=== PATIENT | male | born 1965 | race Caucasian/White ===

== ENCOUNTER 2018-02-27 13:31 | Outpatient (CLI) | payer OTHER, SELFPAY ==
[2018-02-27 14:38] LABS: Anion Gap 9.2 mmol/L (3-11); BUN 19 mg/dL (7-18); CO2 25.8 mmol/L (21.0-32.0); CREATININE 1.14 mg/dL (0.70-1.30); Chloride 106 mmol/L (98-107); Glucose 103 mg/dL (70-100); Potassium 3.9 mmol/L (3.5-5.1); Sodium 141 mmol/L (136-145)
[2018-02-28 10:07] LABS: PSA, Screening 0.4 ng/ml (0-3.5)
== END 2018-02-27 13:51 ==
PROVIDERS: PCP Nurse Practitioner Family; Visit Provider Urology
DX: R33.9 Retention of urine, unspecified (principal); Z12.5 Encounter for screening for malignant neoplasm of prostate
CPT/HCPCS: 36415; 80048; 84153

== ENCOUNTER 2018-04-08 09:03 | Day surgery (SDC) | payer OTHER, SELFPAY ==
[2018-04-08 09:15] VITALS: BP 138/80; PULSE 70; RESP 16; TEMP 36.5; O2SAT 95
[2018-04-08] MEDS: Lactated Ringers 1,000 ML 80 ML IV (09:40)
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
[2018-04-08] MEDS: Lidocaine 2% Jelly 11 ML SYR ×2 (11:33→11:46)
--- NOTE | 2018-04-08 11:58 | W.PM.DSUDISC ---
Discharge Plan Disposition Patient Disposition: HOME Condition: Stable Discharge Details Reason For Visit: URETERAL STRICTURE Attending Provider: Ralph Barton Primary Care Provider: Kristina Arrieta Home Meds and New Rx's Prescriptions: No Action acetaminophen [Tylenol] 325 mg Capsule 325 mg RF: 0 ibuprofen 200 mg Tablet 200 mg RF: 0 Discharge Instructions Additional Instructions: Use OTC tylenol/ibuprofen for any discomfort F/U with me 2 to 3 weeks for symptom check Activity:: Activity as Tolerated Diet:: As Tolerated Discharge Orders Discharge Orders: Discharge Order (Routine); Ordered 04/08/18 Ordered By: Ralph Barton DS: Diagnosis Discharge Diagnosis (1) Urethral stricture: Status: Acute
[2018-04-08 12:28] VITALS: BP 109/67; PULSE 54; RESP 16; TEMP 36.3; O2SAT 97
[2018-04-08] MEDS: Phenazopyridine 200 MG TAB PO (12:30)
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
== END 2018-04-08 13:45 | disposition home or self-care (01) ==
PROVIDERS: PCP Nurse Practitioner Family; Visit Provider Urology
PROC: 0TJB8ZZ Inspection of Bladder, Via Natural or Artificial Opening Endoscopic (ICD-10-PCS; CPT 52000; principal; 2018-04-08 10:00)
DX: N35.014 Post-traumatic urethral stricture, male, unspecified (principal); X58.XXXS Exposure to other specified factors, sequela
CPT/HCPCS: 52281; NC; J0696; J1885; J2405

== ENCOUNTER 2018-05-31 07:05 | Day surgery (SDC) | payer OTHER, SELFPAY ==
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
[2018-05-31 07:20] VITALS: BP 151/93; PULSE 61; RESP 16; TEMP 37; O2SAT 96
[2018-05-31] MEDS: Tetracaine 0.5% 4 ML BTL OS ×4 (07:30→08:38)
[2018-05-31] MEDS: Tropicam./Phenyleph. (1/2.5%) 5 ML BTL OS ×3 (07:30→07:40)
[2018-05-31] MEDS: Lidocaine 2% Jelly 6 ML SYR (08:38)
[2018-05-31] MEDS: Povidone-Iodine Ophth 30 ML BTL (08:38)
[2018-05-31] MEDS: Balanced Salt Soln.-PLUS 500 ML BAG (08:38)
[2018-05-31] MEDS: Lidocaine 1% Pres-Free 5 ML VIAL (08:38)
[2018-05-31] MEDS: Trypan Blue 0.06% 0.5 ML SYR (08:38)
--- NOTE | 2018-05-31 09:09 | W.PM.DSUDISC ---
Discharge Plan Discharge Details Reason For Visit: CATARACT OS Attending Provider: Landry Pratt Primary Care Provider: Kristina Arrieta Home Meds and New Rx's Prescriptions: No Action acetaminophen [Tylenol] 325 mg Capsule 325 mg RF: 0 ibuprofen 200 mg Tablet 200 mg RF: 0 Discharge Instructions Stand Alone Forms: Post-op Topical Cataract, Stevan Caruso (DSU) DS: Diagnosis Discharge Diagnosis (1) Status post cataract extraction and insertion of intraocular lens of left eye: Status: Chronic
--- NOTE | 2018-05-31 09:11 | W.PM.OP ---
Date of service: 05/31/18 Time of Service: 09:12 Operative Note PRE-OP DIAGNOSIS: Cataract, left eye, with poor red reflex POST-OP DIAGNOSIS: same PROCEDURE: Cataract extraction using phacoemulsification with intraocular lens implant, left eye, using capsular staining with Vision Blue SURGEON: Landry Pratt ANESTHESIA: MAC (with local sub-tenon's anesthetic injection) COMPLICATIONS: None Patient was transported to: same day Patient's condition: stable Implants: Stuart and Stuart / [employer] Tecnis [id number] Indications: Progressive decreased vision due to cataract, left eye, with poor red reflex Procedure Description: CATARACT SURGERY OPERATIVE REPORT PREOPERATIVE DIAGNOSIS: 1. Nuclear/posterior subcapsular cataract, left eye 2. Poor red reflex secondary to #1 POSTOPERATIVE DIAGNOSIS: Same OPERATION: 1. Cataract extraction using phacoemulsification with posterior chamber intraocular lens implant, left eye. 2. Capsular staining with Vision Blue IOL: IOL Edge Roller/Model: [employer]at [employer] Stuart / KELLEN Tecnis ZCB00 IOL Power: + 23.0 diopters IOL Serial Number: [id number] Optic Diameter: 6.0 mm Haptic/Overall Diameter: 13.0 mm PHACO INFO: Ede MiCursadaurion Vision System with OZil and Active Fluidics Cumulative Dispersed Energy (CDE): 4.6 seconds SURGEON: Landry Pratt MD, AMBROSIO ANESTHESIA: Monitored [facility] (MAC), with local sub-tenon's anesthetic infiltration COMPLICATIONS: None SPECIMENS: None INDICATIONS FOR PROCEDURE: The patient is a 53-year-old male with history of having undergone cataract surgery in the right eye in 2012 for a posterior subcapsular cataract. He has done well postoperatively in the right eye. He has now developed a significant posterior subcapsular cataract in the left eye with visual acuity of 20/100. The option of cataract surgery was offered to the patient and he wished to proceed PROCEDURE: The correct surgical eye was identified and marked as the left eye and the pupil was dilated in the preoperative area using mydriatics and cycloplegics. The dilated pupil size was 7.5 mm. Oral sedation was administered in the form of an Imprimis MKO Melt (midazolam 3mg/ketamine 25mg/ondansetron 2mg). The patient was brought to the operating room where cardiopulmonary monitoring was instituted and surgical time-out was performed, confirming the correct operative eye and IOL power. Topical anesthesia was administered and ophthalmic povidone-iodine 5% was instilled into the conjunctival fornices. Lidocaine gel was applied to the cornea and the sourav-ocular area was prepped with Betadine 10% solution and draped in the usual sterile fashion for intraocular surgery, including an aperture drape. A Tegaderm transparent film dressing was cut in half and used to cover the lashes and lid margins. Care was taken to sequester the lashes and lid margins under the Tegaderm dressing. A lid speculum was placed between the lids of the operative eye and the Janice-Ashley operating microscope was maneuvered into position. Janice scissors were then used to make a conjunctival buttonhole approximately 6mm posterior to the limbus in the inferonasal quadrant. Blunt dissection was carried out to expose bare sclera, and a blunt-tipped sub-tenon?s anesthesia cannula was introduced and passed posteriorly along the globe where non-preserved plain lidocaine was injected into posterior sub-Tenon?s space. A sideport knife was used to make a paracentesis port at the 12:00 position. Air was injected into the anterior chamber, followed by Vision Blue, which was painted over the anterior capsule and then irrigated out using BSS. The anterior chamber was filled with Healon GV. A 2.4mm keratome knife was used to create a half-thickness groove at the limbus and then to construct a three-plane near-clear corneal tunnel extending 2.0mm into clear cornea at the 3:00 position. A flap was raised on the anterior capsule and capsulorhexis forceps were used to complete a continuous curvilinear capsulorhexis of 5.5 mm. Balanced salt solution was then used to perform cortical cleaving hydrodissection and nuclear hydrodelineation until the lens could be freely rotated within the capsular bag. The lens nucleus was then disassembled and removed within the capsular bag and iris plane using phacoemulsification. Residual cortical material was removed using the 45-degree angled silicone I/A tip with 0.3mm port. The posterior capsule was carefully polished to remove as much residual lens epithelial cells as safely possible. Extensive polishing of the posterior capsule and the underside of the anterior capsule was undertaken to remove residual posterior subcapsular plaque and lens epithelial cells. The capsular bag was then inflated and the anterior chamber deepened with viscoelastic. The lens implant described above was inserted into the capsular bag using the KELLEN [employer] Injector. A Kuglen hook was used to dial the IOL into position. The subincisional anterior capsular leaflet was polished using the [employer] nucleus manipulator to remove lens epithelial cells. Residual viscoelastic was then removed first from posterior to the IOL, then from the anterior chamber using the I/A handpiece. The lens implant was noted to center nicely within the capsular bag. The incisions were stromally hydrated, and the anterior chamber was reformed using BSS. Then 0.4cc of moxifloxacin 1.5mg/ml were injected into the capsular bag and anterior chamber. The incisions were checked with a Weck spear and found to be secure. Several drops of ophthalmic povidone-iodine 5% were then applied to the eye followed by two drops of Imprimis combination moxifloxacin/dexamethasone solution. The drapes were removed and a clear plastic protective eye shield was placed over the eye. The patient was then returned to Same Day Surgery in stable condition.
--- NOTE | 2018-05-31 09:15 | ROE_ITS ---
Date of service: 05/31/18 Time of Service: 09:12 Operative Note PRE-OP DIAGNOSIS: Cataract, left eye, with poor red reflex POST-OP DIAGNOSIS: same PROCEDURE: Cataract extraction using phacoemulsification with intraocular lens implant, left eye, using capsular staining with Vision Blue SURGEON: Landry Pratt ANESTHESIA: MAC (with local sub-tenon's anesthetic injection) COMPLICATIONS: None Patient was transported to: same day Patient's condition: stable Implants: Stuart and Stuart / [employer] Tecnis [id number] Indications: Progressive decreased vision due to cataract, left eye, with poor red reflex Procedure Description: CATARACT SURGERY OPERATIVE REPORT PREOPERATIVE DIAGNOSIS: 1. Nuclear/posterior subcapsular cataract, left eye 2. Poor red reflex secondary to #1 POSTOPERATIVE DIAGNOSIS: Same OPERATION: 1. Cataract extraction using phacoemulsification with posterior chamber intraocular lens implant, left eye. 2. Capsular staining with Vision Blue IOL: IOL Sheep Herder/Model: Stuart & Stuart / KELLEN Tecnis ZCB00 IOL Power: + 23.0 diopters IOL Serial Number: [id number] Optic Diameter: 6.0 mm Haptic/Overall Diameter: 13.0 mm PHACO INFO: Ede Yazinourion Vision System with OZil and Active Fluidics Cumulative Dispersed Energy (CDE): 4.6 seconds SURGEON: Landry Pratt MD, AMBROSIO ANESTHESIA: Monitored A [facility] (MAC), with local sub-tenon's anesthetic infiltration COMPLICATIONS: None SPECIMENS: None INDICATIONS FOR PROCEDURE: The patient is a 53-year-old male with history of having undergone cataract surgery in the right eye in 2012 for a posterior subcapsular cataract. He has done well postoperatively in the right eye. He has now developed a significant posterior subcapsular cataract in the left eye with visual acuity of 20/100. The option of cataract surgery was offered to the patient and he wished to proceed PROCEDURE: The correct surgical eye was identified and marked as the left eye and the pupil was dilated in the preoperative area using mydriatics and cycloplegics. The dilated pupil size was 7.5 mm. Oral sedation was administered in the form of an Imprimis MKO Melt (midazolam 3mg/ketamine 25mg/ondansetron 2mg). The patient was brought to the operating room where cardiopulmonary monitoring was instituted and surgical time-out was performed, confirming the correct operative eye and IOL power. Topical anesthesia was administered and ophthalmic povidone-iodine 5% was instilled into the conjunctival fornices. Lidocaine gel was applied to the cornea and the sourav-ocular area was prepped with Betadine 10% solution and draped in the usual sterile fashion for intraocular surgery, including an aperture drape. A Tegaderm transparent film dressing was cut in half and used to cover the lashes and lid margins. Care was taken to sequester the lashes and lid margins under the Tegaderm dressing. A lid speculum was placed between the lids of the operative eye and the Janice-Ashley operating microscope was maneuvered into position. Janice scissors were then used to make a conjunctival buttonhole approximately 6mm posterior to the limbus in the inferonasal quadrant. Blunt dissection was carried out to expose bare sclera, and a blunt-tipped sub-tenon?s anesthesia cannula was introduced and passed posteriorly along the globe where non- preserved plain lidocaine was injected into posterior sub-Tenon?s space. A sideport knife was used to make a paracentesis port at the 12:00 position. Air was injected into the anterior chamber, followed by Vision Blue, which was painted over the anterior capsule and then irrigated out using BSS. The anterior chamber was filled with Healon GV. A 2.4mm keratome knife was used to create a half-thickness groove at the limbus and then to construct a three-plane near-clear corneal tunnel extending 2.0mm into clear cornea at the 3:00 position. A flap was raised on the anterior capsule and capsulorhexis forceps were used to complete a continuous curvilinear capsulorhexis of 5.5 mm. Balanced salt solution was then used to perform cortical cleaving hy drodissection and nuclear hydrodelineation until the lens could be freely rotated within the capsular bag. The lens nucleus was then disassembled and removed within the capsular bag and iris plane using phacoemulsification. Residual cortical material was removed using the 45-degree angled silicone I/A tip with 0.3mm port. The posterior capsule was carefully polished to remove as much residual lens epithelial cells as safely possible. Extensive polishing of the posterior capsule and the underside of the anterior capsule was undertaken to remove residual posterior subcapsular plaque and lens epithelial cells. The capsular bag was then inflated and the anterior chamber deepened with viscoelastic. The lens implant described above was inserted into the capsular bag using the KELLEN [place] Injector. A Kuglen hook was used to dial the IOL into position. The subincisional anterior capsular leaflet was polished using the [employer] nucleus manipulator to remove lens epithelial cells. Residual viscoelastic was then removed first from posterior to the IOL, then from the anterior chamber using the I/A handpiece. The lens implant was noted to center nicely within the capsular bag. The incisions were stromally hydrated, and the anterior chamber was reformed using BSS. Then 0.4cc of moxifloxacin 1.5mg/ml were injected into the capsular bag and anterior chamber. The incisions were checked with a Weck spear and found to be secure. Several drops of ophthalmic povidone-iodine 5% were then applied to the eye followed by two drops of Imprimis combination moxifloxacin/dexamethasone solution. The drapes were removed and a clear plastic protective eye shield was placed over the eye. The patient was then returned to Same Day Surgery in stable condition.
[2018-05-31 09:50] VITALS: BP 132/80; PULSE 62; RESP 16; TEMP 36.6; O2SAT 94
== END 2018-05-31 09:45 | disposition home or self-care (01) ==
LOC: SUR 07:05
PROVIDERS: PCP Nurse Practitioner Family; Visit Provider Ophthalmology
PROC: (CPT 66982; principal; 2018-05-31 08:30)
DX: H25.812 Combined forms of age-related cataract, left eye (principal); H35.89 Other specified retinal disorders; Z98.41 Cataract extraction status, right eye; Z96.1 Presence of intraocular lens
CPT/HCPCS: 66982; V2632

== ENCOUNTER 2019-08-19 01:50 | Outpatient (CLI) | payer OTHER, SELFPAY ==
--- NOTE | 2019-08-19 | DI.US_ITS ---
APPROVED REPORT EXAM: Comprehensive 2D, Doppler, and color-flow Echocardiogram Patient Location: Out-Patient Pin Machine Tender: Maria Ines Penn RDCS (AE) Indications: MUSA, Exertional Chest pain Conclusion Left Ventricle : The left ventricle is normal size. The left ventricular systolic function is normal. The left ventricular ejection fraction is within the normal range. There is normal left ventricular wall thickness. There is normal LV segmental wall motion. The left ventricular diastolic function is normal. LVEF is 65-70%. Right Ventricle : The right ventricle is normal size. The right ventricular systolic function is norm al. Atria : The left atrium size is normal. The right atrium size is normal. Valves: There are no hemodynamically significant valvular lesions. Great Vessels : IVC is normal in size and collapses >50% with inspiration. Estimated RVSP is 21-24 m mHg. Please see remainder of report for additional details. There is no prior echocardiogram available for comparison. Wall motion Left Ventricle The left ventricle is normal size. The left ventricular systolic function is normal. The left ventric ular ejection fraction is within the normal range. There is normal left ventricular wall thickness. T here is normal LV segmental wall motion. The left ventricular diastolic function is normal. LVEF is 6 5-70%. Right Ventricle The right ventricle is normal size. The right ventricular systolic function is normal. Atria The left atrium size is normal. The right atrium size is normal. Aortic Valve The aortic valve is normal in structure. Aortic valve is trileaflet. There is no aortic valvular sten osis. No aortic regurgitation is present. Mitral Valve The mitral valve is normal in structure. No evidence of mitral valve stenosis. Mild mitral regurgitat ion. Tricuspid Valve The tricuspid valve is normal in structure. There is no tricuspid valve stenosis. Trace to mild tricu spid regurgitation. Pulmonic Valve The pulmonary valve is normal in structure. There is no pulmonic valvular stenosis. Trace pulmonic re gurgitation. Great Vessels The aortic root is normal in size. The pulmonary artery is normal. The ascending aorta is normal in s ize. Aortic arch is normal in caliber. IVC is normal in size and collapses >50% with inspiration. Est imated RVSP is 21-24 mmHg. Pericardium There is no pericardial effusion. There is no pleural effusion. 2D Dimensions IVSD d PLAX 0.99 cm M: 0.6-1.2 LV Vol A2C d MOD 87.3 mL LVPW d PLAX 0.99 cm M: 0.6 - 1.2 LV Vol A4C d MOD 131.2 mL LVID d PLAX 5.25 cm M: 4.2 - 5.8 LA vol/ BSA A2C s A-L 32.1 mL/m2 LVDs 3.40 cm M: 2.5 - 4.0 LA vol/ BSA A4C s A-L 33.9 mL/m2 Ao Root d 3.35 cm M: 3.1 - 3.7 LA Vol/ BSA Biplane s A-L 35.7 mL/m2 RA Area A4C 13.72 cm2 LA Area A4C s MOD 23.55 cm2 RA Vol/ BSA A4C s A-L 16.2 mL/m2 LA Area A2C s MOD 21.19 cm2 Ao Asc Diam d 3.54 cm M: 2.6 - 3.4 LV EF A4C MOD 62.1 % LV EF Teichholz 64.1 % LV EF A2C MOD 66.5 % LVEF (Smith's) 63.69 % M: 52 - 72 LV EF Biplane MOD 63.7 % LV Volume 80.17 mL M: 62 - 150 LV Volume Index 35.00 mL/m2 M: 34 - 74 LV Vol Biplane MOD 111.7 mL FS 35.15 % M-Mode TAPSE 2.84 cm (M/F) <1.7 LV Diastology MV E' medial 0.180 (>0.07 m/s) E/A Ratio 1.2 LV E/e MED 3.75 (<14) MV E Vmax 0.68 (0.4-1.3 m/s) MV E' lateral 0.161 (>0.1 m/s) MV A Vmax 0.55 (0.4-1.3 m/s) LV E/e LAT 4.20 (<14) MV E/A Ratio 1.16 MV E/E' medial 3.79 MV E/E' lateral 4.22 Aortic Valve LVOT Area 3.80 cm2 AoV Area Vmax 3.54 cm2 LVOT Vmax 1.39 m/s AoV Area/ BSA (Vmax) 1.54 cm2/m2 LVOT Mean Ben. 0.81 m/s TITO Mean Ben. 2.98 cm2 LVOT Peak Grad 7.7 mmHg TITO Mean Ben. Index 1.30 cm2/m2 LVOT Mean Grad 3.3 mmHg LVOT VTI 0.323 m LVOT Diam s 2.20 cm (M/F) 1.5-2.5 AoV Vmax 1.50 (0.5-1.3 m/s) Velocity Ratio 0.92 AoV Mean Ben. 1.03 m/s AoV Peak Grad 9.0 mmHg LVOT SV 122.86 mL AoV Mean Grad 4.7 (<5 mmHg) AoV VTI 0.290 (0.18-0.25 m) AoV Area VTI 4.24 (2.5-4.5 cm2) AoV Area/ BSA (VTI) 1.85 cm/m2 Mitral Valve MV DT 197 (160-240 msec) MV PHT 57 msec MV Area PHT 3.85 cm2 Pulmonary Valve PV Vmax 1.16 (0.5-1.5 m/s) RVOT Peak Gr. 1.75 mmHg PV Peak Grad 5.4 mmHg RVOT Mean Gr. 0.80 mmHg PV Mean Grad 2.7 mmHg RVOT VTI 0.142 m PV VTI 0.247 m RVOT Vmax 0.66 m/s Tricuspid Valve TR Peak Grad 21.3 mmHg TR Vmax 2.31 m/s RA Pressure 3.00 mmHg RVSP (TR) 24.3 mmHg
== END 2019-08-19 02:10 ==
PROVIDERS: PCP Nurse Practitioner Family; Visit Provider Nurse Practitioner Family
DX: R07.89 Other chest pain (principal); R06.89 Other abnormalities of breathing
CPT/HCPCS: 93306

== ENCOUNTER 2019-08-26 01:22 | Outpatient (CLI) | payer OTHER, SELFPAY ==
--- NOTE | 2019-08-26 08:00 | ETT_ITS ---
APPROVED REPORT Exam: Exercise Treadmill Patient Location: Out-Patient Room/Bed: Stress Nurse: Cherelle Barnes RN BMI: 35.86 Baseline Rhythm: Sinus Rhythm Indications: Exertional chest pain and SOB. Medical History Allergies: No known drug allergies Cardiac Risk Factors: FHX of CAD, Former smoker Pretest Chest Pain Characteristics: Exertional Chest pain Exercise History: Physically active Lung Sounds: Clear to auscultation Heart Sounds: Regular Stress Test Details Test: Exercise stress testing was performed using a Smion protocol. Rest Stress HR Resting HR Supine: 52 bpm Max Heart Rate (APMHR): 168 bpm Resting HR Standin bpm Target HR (85% APMHR): 142 bpm Max HR Achieved: 143 bpm % of APMHR: 85 Recovery HR: 82 bpm HR response to stress: Normal HR response to stress BP Resting BP Supine: 136/82 mmHg Resting BP Standin/78 mmHg Max BP: 210/80 mmHg Recovery BP: 148/82 mmHg BP response to stress: Normal blood pressure response to stress. ECG Resting ECG: Sinus Rhythm Stress ECG: Sinus Tachycardia ST Change: No significant ST segment changes Arrhythmia: None Recovery ECG: Sinus Rhythm Recovery ST Change: No significant ST segment changes Recovery Arrhythmia: None Clinical Reason for Termination: Fatigue, Leg pain/Claudication Stress Symptoms: Leg Fatigue, General Fatigue Exercise duration: 10 min41 sec Highest Stage Reached: Stage 4: 4.2 mph at 16% grade. Exercise capacity: 9 METs Functional Capacity: Average Capacity Scale: Active Stress ECG Conclusion 1. Patient exercised for 11 minutes. (9 METS). Rate-pressure product was 29,000. 2. Patient had no symptoms suggestive of ischemia. 3. There was no evidence of ischemia on the ECG portion of this exam. 4. The Brink Score (7) estimates an annual cardiovascular mortality of 0% and a five year survival of 95%. Using the Brink Score there is a low probability of any angiographic coronary disease. Protocol Used: Simon Protocol Stress Test Summary STAGE Time (mins) Speed (mph) Grade (%) HR BP SYMPTOMS METS Supine 52 136/82 Standing 64 116/78 1 3 1.7 10 86 158/80 4.6 2 6 2.5 12 99 190/76 7 3 9 3.4 14 117 200/75 10.2 4 12 4.2 16 138 12.9 5 15 5.0 18 17.2 1 min recovery 112 210/80 3 min recovery 85 190/90 6 min recovery 82 148/82 9 min recovery 12 min recovery
== END 2019-08-26 01:42 ==
PROVIDERS: PCP Nurse Practitioner Family; Visit Provider Nurse Practitioner Family
DX: R07.89 Other chest pain (principal); R06.02 Shortness of breath; Z87.891 Personal history of nicotine dependence; Z82.49 Family history of ischemic heart disease and other diseases of the circulatory system
CPT/HCPCS: 93017

== ENCOUNTER 2024-08-06 15:25 | Emergency (ER) | payer OTHER, SELFPAY ==
[2024-08-06 15:27] VITALS: BP 186/88; PULSE 70; RESP 18; TEMP 36.4; O2SAT 96
[2024-08-06 15:29] VITALS: BP 186/88; PULSE 70; RESP 18; TEMP 36.4; O2SAT 96
--- NOTE | 2024-08-06 15:55 | W.ED.GENAD ---
Discharge Plan Disposition Patient Disposition: Home Condition: Stable Discharge Details Clinical Impression: Abscess, Cellulitis, Hypertension Primary Care Provider: Kristina Arrieta ED Provider: Radha Aviles Home Meds and New Rx's Prescriptions: New sulfamethoxazole-trimethoprim [Bactrim DS] 800-160 mg tablet 1 tab PO BID 7 Days Qty: 14 0RF No Action acetaminophen [Tylenol] 325 mg Capsule 650 mg PO Q6H PRN ibuprofen 200 mg Tablet 200 mg PO Q8H PRN Discharge Instructions Instructions: Abscess Incision and Drainage ED, Cellulitis (Skin Infection), Adult ED, High Blood Pressure ED Additional Instructions: Please follow-up in 2 days to have packing removed and wound rechecked. Take antibiotics as prescribed. Follow-up with primary care to have blood pressure rechecked. Referrals: Kristina Arrieta [Primary Care Provider] - 1 week Discharge Data Discharge Physician: Radha Aviles HPI General Date/Time Provider Initiated Documentation: 08/06/24 15:40. HPI Narrative: 59-year-old male presents for evaluation of abscess to left lower back. Patient states that about a week ago he noticed some irritation to the area. It has grown in size since then. Over the last several days he has had drainage from the area. He denies any fevers or chills. No history of skin infections in the past. He is not on any antibiotics. He does have significant pain to the area. Related Data Home Medications ?Medication ?Instructions ?Recorded ?Confirmed acetaminophen 325 mg capsule 650 mg PO Q6H PRN 04/08/18 08/06/24 (Tylenol) ibuprofen 200 mg tablet 200 mg PO Q8H PRN 04/08/18 08/06/24 sulfamethoxazole 800 1 tab PO BID 7 days #14 tabs 08/06/24 mg-trimethoprim 160 mg tablet (Bactrim DS) Previous Rx's ?Medication ?Instructions ?Recorded sulfamethoxazole 800 1 tab PO BID 7 days #14 tabs 08/06/24 mg-trimethoprim 160 mg tablet (Bactrim DS) Allergies Allergy/AdvReac Type Severity Reaction Status Date / Time No Known Allergies Allergy Unverified 08/06/24 15:30 General Stated Complaint: Cellulitis AILEEN: 4 Review of Systems Narrative: Remainder of review of systems otherwise negative except for as noted in the HPI x 5. Exam Narrative Exam Narrative: General: non-toxic, no respiratory distress, comfortable HEENT: normocephalic, atraumatic, lids and lashes normal, PERRL, EOMI, anicteric sclera, no conjunctival injection, moist oral mucosa Musculoskeletal: full range of motion of arms and legs, no tenderness to palpation. no clubbing, cyanosis, or edema Neurologic: appropriate for age, strength normal Psych: alert and oriented Skin: 10 cm x 6 cm area of erythema surrounding wound with purulent discharge which is 4 cm x 2-1/2 cm to left lower back, no vesicular lesions, otherwise no petechiae, no lesions, warm and dry Course Vital Signs Vital signs: Vital Signs Temperature 36.4 C L 08/06/24 15:27 Pulse 70 08/06/24 15: Respiratory Rate 18 08/06/24 15: Blood Pressure 186/88 H 08/06/24 15:27 Pulse Oximetry 96 08/06/24 15:27 Temperature 36.4 C L 08/06/24 15:29 Pulse 70 08/06/24 15:29 Respiratory Rate 18 08/06/24 15:29 Blood Pressure 186/88 H 08/06/24 15:29 Pulse Oximetry 96 08/06/24 15:29 Pain Level 4 08/06/24 15:29 Procedure Abscess Drainage Date of Procedure: 08/06/24 Time of Procedure: 16:10 Provider that performed the procedure: Radha Sanford Time Out Performed: Yes Patient Consented: Verbally Location of Exam: Lower extremity/left. Complications: None Procedure Description Note: Incision and drainage of left lower back abscess. Area washed with Betadine x 3. 5 mL of 1% plain lidocaine injected area. #11 scalpel was used to make incision. 2 separate incisions were made. Loculations were broken down with forceps. Areas were irrigated with saline. 1/4 inch iodoform packing placed in both wounds. Dressing applied by nursing. Medical Decision Making 59-year-old male presents for evaluation of discharge from wound from left lower back. Patient does have an actively draining abscess however there does appear to be significant purulence. Wound culture was obtained. Patient was started on Bactrim. I&D will be performed. I&D was performed by myself. Iodoform packing placed. Patient will continue on antibiotics. I have recommended wound recheck and packing removal in 2 days. We have also discussed his elevated blood pressure today. I have recommended close follow-up. Patient states his blood pressure has been somewhat elevated ever since he quit smoking a year ago. He understands the importance of monitoring and treatment of elevated blood pressure if needed. Quality:[facility] Health Related Social Needs: No Data to Display PFSH All Active Problems (Updated 08/06/24 @ 16:21 by Radha Aviles MD) Hypertension (Chronic) Cellulitis (Acute) Abscess (Acute) Employee exposure to body fluids (Acute) Status post cataract extraction and insertion of intraocular lens of left eye (Chronic 05/31/18) Status post cataract extraction and insertion of intraocular lens of right eye (Chronic 10/21/12) Urethral stricture (Acute) Encounter for vasectomy (Acute 05/04/17) Incomplete emptying of bladder (Chronic) Medical History Nuclear sclerotic cataract of left eye Posterior subcapsular age-related cataract of left eye Tobacco dependence Surgical History wisdom teeth (09/19/97) Colonoscopy - IV Sedation (08/02/16) Extraction of cataract Family History Father Colon cancer Mother Heart disease Brother No problems noted. Brother No problems noted. Sister No problems noted. Sister No problems noted. Sister No problems noted. Social History Smoking/Tobacco Use Status: Former Tobacco Use Smoking risk assessment performed?: Yes Alcohol Intake: current Drug use: Rarely Substance use type: marijuana Housing: house Do you feel safe at home: Yes Do you feel safe in your relationship?: Yes POCUS Exam (ED) Limited Soft Tissue Exam PROVIDER THAT PERFORMED THE STUDY: Radha Aviles
[2024-08-06] MEDS: Lidocaine 1% Pres-Free 5 ML VIAL IJ (15:59)
[2024-08-06] MEDS: Sulfameth/Trimeth DS TAB 1 TAB PO (15:59)
[2024-08-06 16:40] VITALS: BP 164/85; PULSE 65; RESP 14; O2SAT 96
== END 2024-08-06 16:48 | disposition home or self-care (01) ==
LOC: ER 17:33
PROVIDERS: Emergency Provider Emergency Medicine Emergency Medical Services; PCP Nurse Practitioner Family
DX: L02.212 Cutaneous abscess of back [any part, except buttock and flank] (principal); L03.312 Cellulitis of back [any part except buttock and flank]; I10 Essential (primary) hypertension; Z87.891 Personal history of nicotine dependence
CPT/HCPCS: 10060; 99283; 87070; 87205; J2003

== ENCOUNTER 2024-08-08 15:25 | Emergency (ER) | payer OTHER, SELFPAY ==
[2024-08-08 15:27] VITALS: BP 155/79; PULSE 60; RESP 18; TEMP 36.4; O2SAT 94
--- NOTE | 2024-08-08 16:35 | ED.GENADUL_ITS ---
Discharge Plan Disposition Patient Disposition: Home Condition: Good Discharge Details Clinical Impression: Encounter for wound re-check Primary Care Provider: Kristina Arrieta ED Provider: Zion Cowart Home Meds and New Rx's Prescriptions: No Action sulfamethoxazole-trimethoprim [Bactrim DS] 800-160 mg tablet 1 tab PO BID 7 Days Qty: 14 0RF acetaminophen [Tylenol] 325 mg Capsule 650 mg PO Q6H PRN ibuprofen 200 mg Tablet 200 mg PO Q8H PRN Discharge Instructions Additional Instructions: We have washed out your abscess and repacked it. Please follow-up closely with your primary care provider next week for reassessment. Please continue your antibiotics. If you notice any spreading redness, fever chills or worsening symptoms, please return immediately for reassessment. If you notice any worsening of your symptoms, or any new symptoms such as vomiting, diarrhea, fever, chills, shortness of breath, chest pain, numbness, weakness, or fainting , please return immediately to the emergency department for reevaluation. Please follow up with your primary care provider as soon as possible for reassessment and reevaluation. As always, it was a pleasure participating in your medical care today. Referrals: Kristina Arrieta [Primary Care Provider] - [facility] General Date/Time Provider Initiated Documentation: 08/08/24 15:38 . HPI Narrative: 59-year-old male presents for wound recheck. He had an abscess noted on his back on 08/06/2024, it was incised and drained. It was packed. He was started on Bactrim and discharged. He presents for wound recheck. He denies any fever or chills. He does have a mild amount of drainage. He denies any other complaints. He is taking antibiotic as directed. Related Data Home Medications ?Medication ?Instructions ?Recorded ?Confirmed acetaminophen 325 mg capsule 650 mg PO Q6H PRN 04/08/18 08/08/24 (Tylenol) ibuprofen 200 mg tablet 200 mg PO Q8H PRN 04/08/18 08/08/24 sulfamethoxazole 800 1 tab PO BID 7 days #14 tabs 08/06/24 08/08/24 mg-trimethoprim 160 mg tablet (Bactrim DS) Previous Rx's ?Medication ?Instructions ?Recorded sulfamethoxazole 800 1 tab PO BID 7 days #14 tabs 08/06/24 mg-trimethoprim 160 mg tablet (Bactrim DS) Allergies Allergy/AdvReac Type Severity Reaction Status Date / Time No Known Allergies Allergy Unverified 08/08/24 15:30 General Stated Complaint: Recheck AILEEN: 4 Exam Narrative Exam Narrative: 1.Const: Well-nourished, Well-developed, appearing stated age 2.Eyes: PERRL, no conjunctival injection, and symmetrical lids. 3.ENT: Atraumatic external nose and ears. Moist MM. Neck: Symmetric, trachea midline, No thyromegaly. 4.CVS: +S1/S2, Peripheral pulses 2+ and equal in all extremities. Brisk capillary refill in all extremities. 5.RESP: Unlabored respiratory effort. Clear to auscultation bilaterally. No wheezes rales or rhonchi 6.GI: Soft, Nontender/Nondistended, No hepatosplenomegaly. No guarding or rebound. 7.MSK: Normocephalic/Atraumatic, Extremities w/o deformity or ttp No cyanosis or clubbing, Normal movement of all extremities 8.Skin: Warm, Dry. Back demonstrates healing abscess. Erythema is notably diminished. Notable granulation tissue is present. No purulent discharge. No fluctuance. 9.Neuro: director of hotel II-XII grossly intact. Sensation grossly intact, no focal neurologic deficits. 10.Psych: (AAO) x3. Appropriate mood and affect Course Vital Signs Vital signs: Vital Signs Temperature 36.4 C L 08/08/24 15:27 Pulse 60 08/08/24 15:27 Respiratory Rate 18 08/08/24 15:27 Blood Pressure 155/79 H 08/08/24 15:27 Pulse Oximetry 94 08/08/24 15:27 Temperature 36.4 C L 08/08/24 15:27 Temperature Source Temporal Artery Scan 08/08/24 15:27 Pulse 60 08/08/24 15:27 Respiratory Rate 18 08/08/24 15:27 Blood Pressure 155/79 H 08/08/24 15:27 Blood Pressure Position Sitting 08/08/24 15:27 Pulse Oximetry 94 08/08/24 15:27 Oxygen Delivery Method Room Air 08/08/24 15:27 Oxygen Flow Rate 0 08/08/24 15:27 Procedure Abscess Drainage Date of Procedure: 08/08/24 Time of Procedure: 16:53 Provider that performed the procedure: Zion Cowart Standard Time Out Performed: Yes Patient Consented: Verbally Location of Exam: Lower back/left side Indication: Abscess. Irrigation: Irrigation used, Amount of irrigation(mL): 120. Packing: Iodoform. Outcome: Sucessful. Medical Decision Making 59-year-old male presents for wound recheck. He had an abscess noted on his back on 08/06/2024, it was incised and drained. It was packed. He was started on Bactrim and discharged. He presents for wound recheck. He denies any fever or chills. He does have a mild amount of drainage. He denies any other complaints. He is taking antibiotic as directed. Exam demonstrates an healing abscess with excellent granulation tissue. Packing was removed. No significant purulent discharge. Cellulitis is notably minimal. The entire wound was gently irrigated, the patient's wound was repacked with iodinated gauze. He tolerated this well. It was rebandaged. Recommend cont inued antibiotic use and wound recheck in the next few days. He does have follow-up with his primary care provider next week. I do feel that this is appropriate. Discussed red flags for which to return. I have extensively reviewed the treatment plan and discharge instructions with the patient. I have addressed all patient concerns at this time. The patient was made aware of what symptoms to monitor for that would warrant a return to the emergency department. Discussed the plan with the patient, they demonstrate verbal understanding and agreement with our assessment and plan at this time. The documentation in this chart was dictated using [employer] dictation software. Please excuse any dictation errors. Quality:[facility] Health Related Social Needs: No Data to Display [facility] All Active Problems (Updated 08/08/24 @ 16:36 by Zion Cowart DO) Encounter for wound re-check (Acute) Hypertension (Chronic) Cellulitis (Acute) Abscess (Acute) Employee exposure to body fluids (Acute) Status post cataract extraction and insertion of intraocular lens of left eye (Chronic 05/31/18) Status post cataract extraction and insertion of intraocular lens of right eye (Chronic 10/21/12) Urethral stricture (Acute) Encounter for vasectomy (Acute 05/04/17) Incomplete emptying of bladder (Chronic) Medical History Nuclear sclerotic cataract of left eye Posterior subcapsular age-related cataract of left eye Tobacco dependence Surgical History wisdom teeth (09/19/97) Colonoscopy - IV Sedation (08/02/16) Extraction of cataract Family History Father Colon cancer Mother Heart disease Brother No problems noted. Brother No problems noted. Sister No problems noted. Sister No problems noted. Sister No problems noted. Social History Smoking/Tobacco Use Status: Former Tobacco Use Smoking risk assessment performed?: Yes Alcohol Intake: current Drug use: Rarely Substance use type: marijuana Housing: house Do you feel safe at home: Yes Do you feel safe in your relationship?: Yes POCUS Exam (ED) Limited Soft Tissue Exam PROVIDER THAT PERFORMED THE STUDY: Zion Cowart
[2024-08-08 16:45] VITALS: BP 153/89; PULSE 59; RESP 18; TEMP 36.6; O2SAT 99
== END 2024-08-08 16:47 | disposition home or self-care (01) ==
PROVIDERS: Emergency Provider Student in an Organized Health Care Education/Training Program; PCP Nurse Practitioner Family
DX: L02.212 Cutaneous abscess of back [any part, except buttock and flank] (principal); I10 Essential (primary) hypertension; Z87.891 Personal history of nicotine dependence
CPT/HCPCS: 99282

== ENCOUNTER 2024-09-22 14:43 | Inpatient (IN) | payer OTHER, SELFPAY ==
[2024-09-22] VITALS (87 sets, daily range): BP systolic 111–187; BP diastolic 64–97; PULSE 52–111; RESP 5–35; TEMP 35–39.3; O2SAT 82–97
--- NOTE | 2024-09-22 | DI.CT_ITS ---
Exam(s) CT CHEST PE CTA EXAM: CT CHEST PE CTA CLINICAL HISTORY: sob. TECHNIQUE: Imaging Protocol: Axial CT angiography was performed with multi-slice acquisition and mu lti-planar and/or 3D reconstructions. Lung Computer Aided Detection (CAD) was utilized. CONTRAST MATERIAL: Intravenous: Omnipaque 350 contrast volume:100 mL COMPARISON: CR XR CHEST 2V PA LATERAL from 09/22/2024 FINDINGS: Tracheobronchial tree: Patent where visualized. No bronchiectasis. There is mild bronchial wall thic kening particularly seen in the lower lobes. Pulmonary parenchyma: Multifocal infiltrates are present. There are areas of consolidation seen in t he dependent portions of the lower lobes bilaterally. No architectural distortion. Pulmonary Arteries: No evidence of filling defect to suggest pulmonary emboli. Mediastinum and [place]: There are mildly enlarged hilar lymph nodes. There is a small hiatal hernia. Visualized thyroid gland: Unremarkable. Pleura: There is a small right pleural effusion. There is a tiny left pleural effusion. No pneumoth orax. Heart: The heart is not dilated. Coronary artery calcification is present. No pericardial effusion. Aorta: Thoracic aorta non-dilated. No evidence of dissection. Mild atherosclerotic calcification is p resent. Upper abdomen: Unremarkable. Soft tissues: Unremarkable. Bones: Within normal limits for the patient's age. IMPRESSION: 1. No evidence of pulmonary embolism, thoracic aortic dissection or aneurysm. 2. Multifocal infiltrates are seen in the lung suspicious for pneumonia. 3. Mildly enlarged hilar lymph nodes which are likely reactive. 4. Small bilateral pleural effusions. 5. The preliminary [facility] report was reviewed. RADIATION DOSE DELIVERED: 129.31mGy.cm Total DLP DATA REPOSITORY: All CT scans at this facility are submitted to the National Radiology Data Registry (NRDR) Dose Index Registry (DIR) with the [employer] (ACR). RADIATION OPTIMIZATION: All CT scans at this facility use at least one of these dose optimization te chniques: automated exposure control; mA and/or kV adjustment per patient size (includes targeted exa ms where dose is matched to clinical indication); or iterative reconstruction.
--- NOTE | 2024-09-22 15:15 | DI.RAD_ITS ---
Exam(s) XR CHEST 2V PA LATERAL EXAM: XR CHEST 2V PA LATERAL CLINICAL HISTORY: hypoxia, cough, coarse crackles. TECHNIQUE: 2D digital imaging was performed. COMPARISON: CR CHEST 2 VIEWS PA,LAT from 09/07/20092009. FINDINGS: 2 views: Heart size is upper normal. The mediastinum is not widened. There are increased markings in the mid-lower bilateral lung joseph. Possible small amount of pleura l fluid bilaterally. IMPRESSION: Interstitial infiltrates both lower lobes. Small bilateral pleural effusions. DATA REPOSITORY: RADIATION DOSE DELIVERED:
--- NOTE | 2024-09-22 15:26 | W.ED.GENAD ---
Discharge Plan Disposition Patient Disposition: Admit to [facility] Condition: Fair Discharge Details Chief Complaint: GenMedical Clinical Impression: Acute hypoxic respiratory failure, Influenza A, Pneumonia Primary Care Provider: Reny Washburn ED Provider: Elaine Boston Home Meds and New Rx's Prescriptions: No Action acetaminophen [Tylenol] 325 mg Capsule 650 mg PO Q6H PRN ibuprofen 200 mg Tablet 200 mg PO Q8H PRN HPI General Mode of arrival: ambulatory. Date/Time Provider Initiated Documentation: 09/22/24 14:46. Limitations to Documentation: no limitations. Information obtained by: patient, family and old records reviewed. HPI Narrative: HPI: This is a 69-year-old male patient presenting for evaluation of shortness of breath, cough, and hoarse voice. He reports that since Sunday he has been ill, has had a nonproductive cough, shortness of breath and pain in his chest when he breathes or coughs. He has had subjective fevers and chills, has had a sore throat and his voice is hoarse. He reports that he has had bodyaches and headache, and feels excessively fatigued. Reports that his was sick with similar symptoms, though she has improved. The patient was seen at the [facility], and was noted to be hypoxic to 87%, placed on 2 L of oxygen there. Was saturating 90% in our triage and so was turned up to 3, the patient does not wear oxygen at home and does not have a history of reactive airway disease. Exam: Gen: Awake and alert, appears ill HEENT: Non-icteric sclera, PERRL, bilateral TMs clear, posterior pharynx without erythema, exudate, or asymmetry Neck: Supple, no tender lymphadenopathy Lungs: Mild tachypnea, no significantly increased respiratory effort, but coarse crackles throughout all lung joseph CV: Appears well perfused, heart with regular rate and rhythm, no murmurs auscultated, strong distal pulses Abdomen: Non-distended MSK: Moves 4 extremities without apparent limitation in ROM. No peripheral edema, no unilateral calf swelling or tenderness Skin: Visualized skin without rashes, cyanosis. Neuro: Normal Gait, no obvious focal deficits or facial asymmetry. Speaks in full, clear sentences. Psych: Appropriate for situation. MDM: This is a 59-year-old male patient presenting for evaluation of shortness of breath, cough, body aches, and hypoxia. Differential includes but is not limited to viral URI, pneumonia, bronchitis, certainly considered reactive airway disease exacerbation, pulmonary edema/pleural effusion, the patient has no history of same. The focal lung findings are less consistent with pulmonary embolism, the patient has no DVT signs. The chest pain is present during coughing, though I considered ACS, pericarditis/myocarditis. We will provide the patient with a dose of Tylenol for his body aches, obtain chest x-ray and EKG, and laboratory studies to include CBC, CMP, magnesium, troponin, and BNP. ED Course: During IV start, the patient reported a sensation of lightheadedness and near syncope, became quite clammy and diaphoretic and noble. He was immediately transferred to a resuscitation bay, remained conscious and had no hemodynamic instability during this event. The patient was unfortunately not on telemetry at this time, unknown if he experienced any dysrhythmias during this event. The patient reports after being laid supine, that he felt much improved. I did obtain an EKG, which shows a normal sinus rhythm without ischemia, interval abnormality, or ectopy. A bedside ultrasound was performed, which shows no pulmonary edema, significant cardiac dysfunction or evidence of right heart strain. Given the reassuring echo and no B-lines in the lung joseph I did elect to provide the patient with a liter of IV fluids. Considered vasovagal syndrome, orthostasis, dehydration in the setting of his recent diarrhea. I independently interpreted the laboratory studies, which show no significant leukocytosis, anemia, or thrombocytopenia. The chemistry panel is without evidence of electrolyte abnormality, kidney dysfunction, or liver injury. Troponin negative. The patient's oxygen requirement escalated and he was ultimately placed on 6 L by simple mask. Chest x-ray revealing bilateral interstitial infiltrates, concerning for viral pneumonia. However, given his oxygen need and need for admission I did find it reasonable to start antibiotics to include ceftriaxone and azithromycin. Discussed the patient's case with the hospitalist, who is graciously accepted him for admission to their service for ongoing workup and management. Remained hemodynamically appropriate while under my care. Elaine Boston MD Related Data Home Medications ?Medication ?Instructions ?Recorded ?Confirmed acetaminophen 325 mg capsule 650 mg PO Q6H PRN 04/08/18 09/22/24 (Tylenol) ibuprofen 200 mg tablet 200 mg PO Q8H PRN 04/08/18 09/22/24 Allergies Allergy/AdvReac Type Severity Reaction Status Date / Time No Known Allergies Allergy Unverified 09/22/24 15:11 General Stated Complaint: GenMedical AILEEN: 3 Course Vital Signs Vital signs: Vital Signs Temperature 36.8 C 09/22/24 15:01 Pulse 74 09/22/24 15:01 Respiratory Rate 18 09/22/24 15:01 Blood Pressure 120/76 09/22/24 15:01 Pulse Oximetry 95 09/22/24 15:01 Temperature 36.8 C 09/22/24 15:01 Temperature Source Oral 09/22/24 15:01 Pulse 74 09/22/24 15:01 Respiratory Rate 18 09/22/24 15:01 Blood Pressure 120/76 09/22/24 15:01 Blood Pressure Position Sitting 09/22/24 15:01 Pulse Oximetry 95 09/22/24 15:01 Oxygen Delivery Method Nasal Cannula 09/22/24 15:01 Oxygen Flow Rate 3 09/22/24 15:01 Medical Decision Making Quality:SDOH Health Related Social Needs: No Data to Display Critical Care Time Critical Care Time Critical Care Time: Yes Total Critical Care Time: 35 Attestation: Upon my evaluation, this patient had a high probability of imminent or life-threatening deterioration due to hypoxic respiratory failure, which required my direct attention, intervention, and personal management. I have personally provided 35 minutes of critical care time exclusive of time spent on separately billable procedures. Time includes review of laboratory data, radiology results, discussion with consultants, and monitoring for potential decompensation. Interventions were performed as documented above. Elaine Boston MD [facility] All Active Problems (Updated 09/22/24 @ 17:12 by Elaine Boston MD) Pneumonia (Acute) Influenza A (Acute) Acute hypoxic respiratory failure (Acute) Obesity (Chronic) Urethral stricture (Acute) Incomplete emptying of bladder (Chronic) Medical History (Updated 09/22/24 @ 17:12 by Elaine Boston MD) Family history of malignant neoplasm of digestive organ Snoring Abscess of skin and subcutaneous tissue Nicotine dependence Encounter for vasectomy (05/04/17) Employee exposure to body fluids Nuclear sclerotic cataract of left eye Posterior subcapsular age-related cataract of left eye Tobacco dependence Surgical History (Updated 09/16/24 @ 14:03 by Dasha Cyr RN) Status post cataract extraction and insertion of intraocular lens of right eye (10/21/12) Status post cataract extraction and insertion of intraocular lens of left eye (05/31/18) wisdom teeth (09/19/97) Colonoscopy - IV Sedation (08/02/16) Extraction of cataract Family History Father Colon cancer Mother Heart disease Brother No problems noted. Brother No problems noted. Sister No problems noted. Sister No problems noted. Sister No problems noted. Social History Smoking/Tobacco Use Status: Former Tobacco Use Smoking risk assessment performed?: Yes Alcohol Intake: current Drug use: Rarely Substance use type: marijuana Housing: house Do you feel safe at home: Yes Do you feel safe in your relationship?: Yes POCUS Exam (ED) Limited Cardiac Exam DATE OF EXAM: 09/22/24 TIME OF EXAM: 16:05 PROVIDER THAT PERFORMED THE STUDY: Elaine Boston IS THIS A REPEAT EXAM DURING THIS ENCOUNTER: no REASON FOR EXAM: Dyspnea and Syncope VISUALIZED STRUCTURES: Four Chambers, Left atrium, Left ventricle, LVOT, Right atrium, Right ventricle, Aortic valve, Mitral valve, Interventricular septum and IVC VIEW OBTAINED: Apical 4-Chamber, Parasternal long-axis, Parasternal short-axis, Subxiphoid and Other (Apical lung joseph) PERTINENT FINDINGS/IMPRESSION: IVC inspiratory collapsability; No LV dysfunction and No pericardial effusion Exam complete
--- NOTE | 2024-09-22 15:30 | RT.EKG_ITS ---
APPROVED REPORT Exam: Resting ECG Reason for Exam: SOB Patient Location: E HR:63 bpm ECG Measurements Heart Rate 63 AXIS PA 158 P 75 QRSd 99 QRS 38 QT 393 T 55 QTc 403 Conclusion Sinus rhythm, rate 63 No interval abnormalities No STEMI No priors available for comparison
[2024-09-22 15:55] LABS: HCT 46.9 % (40.0-50.0); HGB 16.3 g/dL (13.5-17.5); MCH 30.8 pg (27.0-33.0); MCHC 34.8 % (32.0-36.0); MCV 89 fL (80-95); MPV 9.5 fL (8.0-11.0); Platelet Count 222 10^3/uL (130-400); RDW 12.2 % (11.8-14.1); RDW-SD 39.7 fL; WBC 5.97 10^3/uL (4.4-10.8)
[2024-09-22] MEDS: Lactated Ringers 1,000 ML 1000 ML IV (16:10)
[2024-09-22] MEDS: ACETAMINOPHEN 1,000 MG/100 ML BAG 400 MG IVPB (16:11)
[2024-09-22 16:15] LABS: Absolute Lymphocyte Count 1.31 10^3/uL (1.2-3.4); Absolute Neutrophil Count 4.06 10^3/uL (1.2-6.7); Atypical Lymphocytes % 3 %; Bands % 7 %; Diff Comment Manual Differential; RBC Morphology Normal
[2024-09-22 16:16] LABS: COVID-19 PCR Negative (Negative); Influenza A PCR Positive (Negative); Influenza B PCR Negative (Negative); RSV PCR Negative (Negative)
[2024-09-22 16:19] LABS: ALT 40 U/L (16-63); AST 41 U/L (15-37); Albumin 2.8 g/dL (3.4-5.0); Alkaline Phosphatase 83 U/L (46-116); BUN 20 mg/dL (7-18); Bilirubin, Total 1.2 mg/dL (0.2-1.0); CREATININE 1.3 mg/dL (0.70-1.30); Calcium 8.9 mg/dL (8.5-10.1); Chloride 99 mmol/L (98-107); Estimated GFR 64.07 (mL/min/1.73m2); Glucose 129 mg/dL (74-106); Magnesium 2.2 mg/dL (1.8-2.4); Potassium 3.3 mmol/L (3.5-5.1); Sodium 134 mmol/L (136-145); Total Protein 7.4 g/dL (6.4-8.2); Troponin I 7 ng/L (<or=76)
[2024-09-22 16:22] LABS: Source Nasopharynx
[2024-09-22 17:12] LABS: Troponin I 8 ng/L (<or=76)
[2024-09-22] MEDS: cefTRIAXone 1 GM/50 ML BAG IVPB (17:13)
--- NOTE | 2024-09-22 17:19 | W.PM.HP.N ---
Date of service: 09/22/24 Time of Service: 17:20 Assessment and Plan Assessment and plan (1) Influenza A: Status: Acute Assessment and plan: Outside the window for Tamiflu and supportive measures only (2) Pneumonia: Status: Acute Assessment and plan: Continue with Rocephin and Zithromax recheck labs in a.m. (3) Acute hypoxic respiratory failure: Status: Acute Assessment and plan: Wean oxygen as tolerated (4) Tobacco dependence: Assessment and plan: Patient states he quit smoking a year ago History of Present Illness History of Present Illness Chief Complaint: weak Narrative: This is a 59-year-old gentleman who has a fairly benign medical history presents with pain 6-day history of myalgia weakness and shortness of breath. Went to a outlying clinic and was noted to be hypoxic and was sent to the ED for further evaluation and treatment. While in the ED workup was done including lab work and patient was positive for flu, influenza A. Chest x-ray was not somewhat indicative of pneumonia patient was admitted secondary to hypoxia as well as double pneumonia patient is out of the window for treatment with Tamiflu. He was treated with Rocephin and Zithromax in the ED. Patient states he quit smoking approximately a year ago. Patient states he did not get his flu shot this year. Review of Systems All systems reviewed & are unremarkable except as noted in HPI and below PFSH All Active Problems (Updated 09/22/24 @ 17:12 by Elaine Boston MD) Pneumonia (Acute) Influenza A (Acute) Acute hypoxic respiratory failure (Acute) Obesity (Chronic) Urethral stricture (Acute) Incomplete emptying of bladder (Chronic) Medical History (Updated 09/22/24 @ 17:12 by Elaine Boston MD) Family history of malignant neoplasm of digestive organ Snoring Abscess of skin and subcutaneous tissue Nicotine dependence Encounter for vasectomy (05/04/17) Employee exposure to body fluids Nuclear sclerotic cataract of left eye Posterior subcapsular age-related cataract of left eye Tobacco dependence Surgical History (Updated 09/16/24 @ 14:03 by Dasha Cyr RN) Status post cataract extraction and insertion of intraocular lens of right eye (10/21/12) Status post cataract extraction and insertion of intraocular lens of left eye (05/31/18) wisdom teeth (09/19/97) Colonoscopy - IV Sedation (08/02/16) Extraction of cataract Family History Father Colon cancer Mother Heart disease Brother No problems noted. Brother No problems noted. Sister No problems noted. Sister No problems noted. Sister No problems noted. Social History Smoking/Tobacco Use Status: Former Tobacco Use Smoking risk assessment performed?: Yes Alcohol Intake: current Drug use: Rarely Substance use type: marijuana Housing: house Do you feel safe at home: Yes Do you feel safe in your relationship?: Yes Meds Allergies and Home Medications Allergies Allergy/AdvReac Type Severity Reaction Status Date / Time No Known Allergies Allergy Unverified 09/22/24 15:11 Home Medications ?Medication ?Instructions ?Recorded ?Confirmed ?Type acetaminophen 325 mg capsule 650 mg PO Q6H PRN 04/08/18 09/22/24 History (Tylenol) ibuprofen 200 mg tablet 200 mg PO Q8H PRN 04/08/18 09/22/24 History Exam Narrative Exam Narrative: HEENT: Normocephalic atraumatic mucous memories moist oropharynx is clear Neck: No lymphadenopathy no JVD no thyromegaly Cardiovascular: Regular rate and rhythm no murmur rubs gallops Lungs: Bilateral wheeze with expiration, no accessory muscle use, does appear to be in mild distress still Abdomen: Soft nontender nondistended bowel sounds active Extremities: No cyanosis clubbing or edema Neurologic: Cranial nerves II through XII intact as tested reflexes in upper extremities normal as tested Psych: Alert and orient x 3 no apparent distress can give 1 year history Results Labs 09/22/24 15:47 09/22/24 15:47 Labs: Laboratory Results - last 24 hr 09/22/24 09/22/24 09/22/24 15:30 15:47 16:46 WBC 5.97 RBC 5.30 Hgb 16.3 Hct 46.9 MCV 89 MCH 30.8 MCHC 34.8 RDW 12.2 Plt Count 222 MPV 9.5 Immature Gran % 0.0 Neutrophils % 61.0 Band Neutrophils % 7 Lymphocytes % 19.0 Atypical Lymphs % 3 Monocytes % 10.0 Eosinophils % 0.0 Basophils % 0.0 Nucleated RBC % 0.0 Absolute Neutrophils 4.06 Absolute Lymphocytes 1.31 Absolute Monocytes 0.60 Absolute Eosinophils 0.00 Absolute Basophils 0.00 RBC Morphology Normal Sodium 134 L Potassium 3.3 L Chloride 99 Carbon Dioxide 23.0 Anion Gap 12.0 H BUN 20 H Creatinine 1.3 Est GFR (CKD-EPI 2020) 64.07 Glucose 129 H Calcium 8.9 Magnesium 2.2 Total Bilirubin 1.2 H AST 41 H ALT 40 Alkaline Phosphatase 83 Troponin I 7 8 Total Protein 7.4 Albumin 2.8 L COVID-19 Source Nasopharynx SARS-CoV-2 (PCR) Negative Influenza Type A (PCR) Positive A Influenza Type B (PCR) Negative RSV (PCR) Negative 09/22/24 18:26 WBC RBC Hgb Hct MCV MCH MCHC RDW Plt Count MPV Immature Gran % Neutrophils % Band Neutrophils % Lymphocytes % Atypical Lymphs % Monocytes % Eosinophils % Basophils % Nucleated RBC % Absolute Neutrophils Absolute Lymphocytes Absolute Monocytes Absolute Eosinophils Absolute Basophils RBC Morphology Sodium Potassium Chloride Carbon Dioxide Anion Gap BUN Creatinine Est GFR (CKD-EPI 2020) Glucose Calcium Magnesium Total Bilirubin AST ALT Alkaline Phosphatase Troponin I Cancelled Total Protein Albumin COVID-19 Source SARS-CoV-2 (PCR) Influenza Type A (PCR) Influenza Type B (PCR) RSV (PCR) Last Vital Signs Temp 36.8 C 09/22/24 15:01 Pulse 61 09/22/24 16:45 Resp 19 09/22/24 16:45 BP 117/65 09/22/24 16:31 Pulse Ox 91 L 09/22/24 16:59 Time Spent Time spent with Patient: <40 minutes Time was spent: preparing to see the patient(eg.review tests), obtaining and/or reviewing separately otained hiistory, ordering medications,tests, procedures, referring, communicating with other health medication care manager, indepentently interpreting results, counseling the patient and care coordination
[2024-09-22] MEDS: AZITHROMYCIN 500 MG in Normal Saline 250 ML 250 MG IVPB (17:47)
[2024-09-22] MEDS: Albuterol/Ipratropium 3 ML UPD VIAL UPD ×2 (17:48→19:16)
[2024-09-22] MEDS: Enoxaparin 40 MG/0.4 ML SYR SC (18:16)
[2024-09-22 19:13] LABS: HCT 39.3 % (40.0-50.0); MCH 31.1 pg (27.0-33.0); MCHC 35.9 % (32.0-36.0); MCV 87 fL (80-95); MPV 9.3 fL (8.0-11.0); Platelet Count 194 10^3/uL (130-400); RBC 4.53 10^6/uL (4.36-5.78); RDW 12.2 % (11.8-14.1); RDW-SD 39.5 fL; WBC 5.12 10^3/uL (4.4-10.8)
--- NOTE | 2024-09-22 19:18 | NUR.NOTE ---
bedside report received from Vanda Bro RN. Repeat CBC drawn at 1903, O2 saturations began to steadily decline. scheduled nebulizer given.
[2024-09-22 19:27] LABS: HGB 14.1 g/dL (13.5-17.5)
[2024-09-22] MEDS: Normal Saline - Diluent 50 ML VIAL IJ (21:24)
[2024-09-22] MEDS: Omnipaque 350 MG/ML 100 ML BTL IJ (21:25)
--- NOTE | 2024-09-22 22:11 | DI.VRAD_ITS ---
PROCEDURE INFORMATION: Exam: CTA Chest With Contrast Exam date and time: 09/22/2024 9:33 PM Age: 59 years old Clinical indication: Shortness of breath TECHNIQUE: Imaging protocol: Computed tomographic angiography of the chest with contrast. Exam focused on the arteries. 3D rendering (Not supervised by radiologist): MIP and/or 3D reconstructed images were created by the technologist. Contrast material: OMNIPAQUE 350; Contrast volume: 100 ml; Contrast route: INTRAVENOUS (IV); COMPARISON: CR XR CHEST 2V PA LATERAL 09/22/2024 4:42 PM FINDINGS: Pulmonary arteries: Normal. No pulmonary emboli. Aorta: Unremarkable. No aortic aneurysm. No aortic dissection. Lungs: Bilateral pulmonary infiltrates consistent with bilateral pneumonia. Pleural spaces: Small pleural effusions. Heart: Unremarkable. No cardiomegaly. No pericardial effusion. Lymph nodes: Unremarkable. No enlarged lymph nodes. Bones/joints: Unremarkable. No acute fracture. Soft tissues: Unremarkable. IMPRESSION: 1. No evidence for pulmonary embolism. 2. Bilateral pulmonary infiltrates consistent with bilateral pneumonia. 3. Small pleural effusions. Dictated and Authenticated by: Kuldeep Ryan MD. Orderin Armando Love MD
[2024-09-22 22:49] LABS: BE -1 mmol/L (-2-3); HCO3 22 mmol/L (22-26); pCO2 29 mmHg (35-45); pH 7.49 (7.35-7.45); pO2 89 mmHg (80-105); sO2 98 % (95-98); tCO2 19 mmol/L (23-27)
[2024-09-22 22:51] LABS: Site Right Radial
[2024-09-22 22:52] LABS: FIO2 75 %; FIO2L 50 L
[2024-09-23] VITALS (43 sets, daily range): BP systolic 114–176; BP diastolic 70–87; PULSE 52–109; RESP 6–28; TEMP 31–38.9; O2SAT 90–99
--- NOTE | 2024-09-23 01:04 | NUR.NOTE ---
pt admitted to ICU, following continuous decline on high flow oxygen. pt stable on cpap of 8 and 50% fio2 sating 96%. care handed off to Lavonne DIETRICH all questions answered at bedside
[2024-09-23] MEDS: Albuterol/Ipratropium 3 ML UPD VIAL UPD ×4 (01:06→19:25)
[2024-09-23] MEDS: Acetaminophen 325 MG TAB 650 MG PO ×2 (01:29→20:16)
[2024-09-23] MEDS: Ibuprofen 200 MG TAB PO (01:29)
[2024-09-23] MEDS: Normal Saline Flush 10 ML SYR IVP ×4 (01:30→20:08)
--- NOTE | 2024-09-23 06:31 | RESPIRATORY ---
Called to ER for pt satting low on 12L oxymask. Pt tachypneic, crs bs. Placed on airvo 50L, 70%. Stable w/spo2 @ 94. @2300. RN increased o2 to 75% when pt had a desat. Pt remains tachypneic, abg drawn and cpap initiated for decreased wob and comfort. Pt states that the cpap helps his breathing and can tolerate it well. -0600 Pt remains on cpap, titrated fio2 to 40%. Pt acknowledges understanding that he can trial off cpap this morning and move to airvo. At this time pt wants to remain on cpap and rest.
[2024-09-23 06:50] LABS: Abs Immature Grans 0.06 10^3/uL (0.0-0.06); Absolute Basophil Count 0.02 10^3/uL (0.0-0.2); Absolute Eosinophil Count 0.01 10^3/uL (0.0-0.7); Absolute Lymphocyte Count 1.78 10^3/uL (1.2-3.4); Absolute Monocyte Count 0.57 10^3/uL (0.1-0.8); Absolute Neutrophil Count 2.58 10^3/uL (1.2-6.7); Basophils % 0.4 %; Eosinophils % 0.2 %; HCT 40.7 % (40.0-50.0); Immature Grans % 1.2 %; Lymphocytes % 35.5 %; MCH 30.8 pg (27.0-33.0); MCHC 34.4 % (32.0-36.0); MCV 90 fL (80-95); Monocytes % 11.4 %; Neutrophils % 51.3 %; Platelet Count 201 10^3/uL (130-400); RBC 4.54 10^6/uL (4.36-5.78); RDW 12.4 % (11.8-14.1); RDW-SD 41.1 fL; WBC 5.02 10^3/uL (4.4-10.8)
[2024-09-23 07:12] LABS: ALT 31 U/L (16-63); AST 31 U/L (15-37); Albumin 2.2 g/dL (3.4-5.0); Alkaline Phosphatase 72 U/L (46-116); Anion Gap 9.5 mmol/L (3-11); BUN 18 mg/dL (7-18); Bilirubin, Total 0.8 mg/dL (0.2-1.0); CO2 25.5 mmol/L (21.0-32.0); Calcium 8.3 mg/dL (8.5-10.1); Chloride 101 mmol/L (98-107); Estimated GFR 87.78 (mL/min/1.73m2); Glucose 105 mg/dL (74-106); Potassium 3.1 mmol/L (3.5-5.1); Sodium 136 mmol/L (136-145); Total Protein 6.3 g/dL (6.4-8.2)
[2024-09-23] MEDS: Azithromycin 250 MG TAB PO (09:27)
--- NOTE | 2024-09-23 09:30 | INITIAL_ITS ---
Date of service: 09/23/24 Time of Service: 09:31 Care Management Initial Assmt Initial Assessment Reason for Hospitalization: hypoxia, Flu A, pneumonia Functional Status/Living Situation Patient Presentation: Alonso presented to the ED yesterday afternoon with c/o SOB, cough, and hoarse voice for the last few days. He stated that he has pain when he coughs or breathes. He was found to have both Flu A and pneumonia. Alonso was lying in bed, still requiring 2L nc O2, when CM met with him today. His voice was very hoarse, but he was still very pleasant and communicative. Alonso stated the he feels he should have come to the ER sooner, but he was trying to get all his syruping done, and pushed his health to the side. Town of Residence: [place] Resides with: Spouse (Catherine, children Dudley and Mendy also live there) Significant Other/Family: Local (son,Dudley) Natural Supports: family Employment Status: Employed (self employed ) Instrumental Activities of Daily Living (ADLs): Independent Medications Medication Management: No Issues/Barriers identified Advance Directives Advance Directives: Do you have an Advance Directive: N 10/25/12 11:08 AD On File at [facility]: N 09/25/12 10:32 Date Asked 09/22/24 09/22/24 14:49 AD Date Reviewed COLST On File at [facility] COLST Date Scanned Code Status Resuscitation Status Full Code Insurance Coverage/Financial Issues Insurance: CBA - [id number] Care Team Visit Care Team Role Provider Type Reny Washburn Primary Care Provider NURSE PRACTITIONER Elaine Boston MD Emergency Provider [facility] STAFF PHYSICIAN Ivan Roberts MD Admit Provider [facility] STAFF PHYSICIAN Attending Provider Discharge Potential Discharge Needs: PCP F/U Appt Anticipated Barriers to Discharge: None Identified Patient/Family Education Needs: Review discharge instructions, discuss Ask Me Three Transportation: Private vehicle Plan: Anticipate that Alonso will discharge home, with no new services, once medically stable. He will f/u with his PCP and continue per his plan of care. CM will continue to follow. Social Determinants of Health Screening Social Determinants of health last assessed in clinic: 09/23/24 Will the Patient Participate in the Screening?: Yes Do you worry about having a steady place to live?: no Problems where you live: no known problems In the past 12 months, have you had to go without electric, gas, oil or water in your home?: no 1. Within the past 12 months, we worried whether our food would run out before we got money to buy more.: Never true 2. Within the past 12 months, the food we bought just didn't last and we didn't have money to get more.: Never true Has lack of transportation kept you from medical appointments or from doing things needed for daily living?: no Has anyone in your life made you feel unsafe or unsupported?: no How hard is it for you to pay for the very basics like food, housing, medical care, and heating? Would you say it is:: Not hard at all Do you want help finding or keeping work or a job?: I do not need or want help If for any reason you need help with day-to-day activities such as bathing, preparing meals, shopping, managing finances, etc., do you get the help you need?: I don?t need any help How often do you feel lonely or isolated from those around you?: Never Do you speak a language other than Bengali at home?: No Does the patient want assistance with any of the above?: No PFSH All Active Problems (Updated 09/23/24 @ 00:49 by ANGELA PERDOMO) Pneumonia (Acute) Influenza A (Acute) Acute hypoxic respiratory failure (Acute) Obesity (Chronic) Urethral stricture (Acute) Incomplete emptying of bladder (Chronic) Medical History (Updated 09/23/24 @ 00:49 by ANGELA PERDOMO) Family history of malignant neoplasm of digestive organ Snoring Abscess of skin and subcutaneous tissue Nicotine dependence Encounter for vasectomy (05/04/17) Employee exposure to body fluids Nuclear sclerotic cataract of left eye Posterior subcapsular age-related cataract of left eye Tobacco dependence Surgical History (Updated 09/16/24 @ 14:03 by Dasha Cyr RN) Status post cataract extraction and insertion of intraocular lens of right eye (10/21/12) Status post cataract extraction and insertion of intraocular lens of left eye (05/31/18) wisdom teeth (09/19/97) Colonoscopy - IV Sedation (08/02/16) Extraction of cataract Family History Father Colon cancer Mother Heart disease Brother No problems noted. Brother No problems noted. Sister No problems noted. Sister No problems noted. Sister No problems noted. Social History Smoking/Tobacco Use Status: Former Tobacco Use Smoking risk assessment performed?: Yes Alcohol Intake: current Drug use: Rarely Substance use type: marijuana Housing: house Do you feel safe at home: Yes Do you feel safe in your relationship?: Yes Readmission Within the Past 30 Days Yes or No: No
[2024-09-23] MEDS: Potassium Chloride 20 MEQ TABCR 40 MEQ PO ×2 (13:04→20:08)
[2024-09-23] MEDS: cefTRIAXone 1 GM/50 ML BAG IVPB (13:04)
[2024-09-23] MEDS: Benzonatate 200 MG CAP PO (13:31)
--- NOTE | 2024-09-23 16:08 | W.PM.PROGNOT ---
Date of Service Date of service: 09/23/24 Time of Service: 08:08 Assessment and Plan Assessment and plan (1) Influenza A: Status: Acute Assessment and plan: Outside the window for Tamiflu, continue supportive measures (2) Pneumonia: Status: Acute Assessment and plan: Superimposed on influenza. Fever, AG, liver labs all improved. Continue with Rocephin and Zithromax (3) Acute hypoxic respiratory failure: Status: Acute Assessment and plan: Now stable off BiPAP, has remained on NC all day down to 2L. Wean oxygen as tolerated (4) Tobacco dependence: Assessment and plan: Patient states he quit smoking a year ago, encouraged (5) DVT prophylaxis: Status: Acute Assessment and plan: enoxaparin Subjective Subjective Patient reports: feels better, tolerating a regular diet and voiding w/o difficulty; denies nausea, vomiting or fever Interval history since last seen: Events: On Bipap overnight, off this AM on NC He is feeling better. Still cough, SOB with activity. no fever this morning. He did eat, appetite better. Exam Narrative Exam Narrative: GEN: Alert and oriented, NAD, voice hoarse Cardiovascular: Regular rate and rhythm no murmur rubs gallops Lungs: Bilateral wheeze with expiration, no accessory muscle use, no distress at rest Abdomen: Soft nontender nondistended bowel sounds active Extremities: No cyanosis clubbing or edema Objective Last Vital Signs Temp 36.5 C 09/23/24 13:39 Pulse 67 09/23/24 14:26 Resp 24 09/23/24 14:19 BP 139/78 09/23/24 14:01 Pulse Ox 93 09/23/24 14:19 Laboratory Results - last 24 hr 09/22/24 09/22/24 09/22/24 15:30 15:47 16:46 WBC 5.97 RBC 5.30 Hgb 16.3 Hct 46.9 MCV 89 MCH 30.8 MCHC 34.8 RDW 12.2 Plt Count 222 MPV 9.5 Immature Gran % 0.0 Neutrophils % 61.0 Band Neutrophils % 7 Lymphocytes % 19.0 Atypical Lymphs % 3 Monocytes % 10.0 Eosinophils % 0.0 Basophils % 0.0 Nucleated RBC % 0.0 Absolute Neutrophils 4.06 Absolute Lymphocytes 1.31 Absolute Monocytes 0.60 Absolute Eosinophils 0.00 Absolute Basophils 0.00 RBC Morphology Normal ABG Sample Site ABG pH ABG pCO2 ABG pO2 ABG HCO3 ABG Total CO2 ABG O2 Saturation ABG Base Excess Oxygen Liter Flow FiO2 Sodium 134 L Potassium 3.3 L Chloride 99 Carbon Dioxide 23.0 Anion Gap 12.0 H BUN 20 H Creatinine 1.3 Est GFR (CKD-EPI 2020) 64.07 Glucose 129 H Calcium 8.9 Magnesium 2.2 Total Bilirubin 1.2 H AST 41 H ALT 40 Alkaline Phosphatase 83 Troponin I 7 8 Total Protein 7.4 Albumin 2.8 L Phenobarbital COVID-19 Source Nasopharynx SARS-CoV-2 (PCR) Negative Influenza Type A (PCR) Positive A Influenza Type B (PCR) Negative RSV (PCR) Negative 09/22/24 09/22/24 09/22/24 18:26 19:03 22:38 WBC 5.12 RBC 4.53 Hgb 14.1 D Hct 39.3 L MCV 87 MCH 31.1 MCHC 35.9 RDW 12.2 Plt Count 194 MPV 9.3 Immature Gran % Neutrophils % Band Neutrophils % Lymphocytes % Atypical Lymphs % Monocytes % Eosinophils % Basophils % Nucleated RBC % Absolute Neutrophils Absolute Lymphocytes Absolute Monocytes Absolute Eosinophils Absolute Basophils RBC Morphology ABG Sample Site Right Radial ABG pH 7.49 H ABG pCO2 29 L ABG pO2 89 ABG HCO3 22 ABG Total CO2 19 L ABG O2 Saturation 98 ABG Base Excess -1 Oxygen Liter Flow 50 FiO2 75 Sodium Potassium Chloride Carbon Dioxide Anion Gap BUN Creatinine Est GFR (CKD-EPI 2020) Glucose Calcium Magnesium Total Bilirubin AST ALT Alkaline Phosphatase Troponin I Cancelled Total Protein Albumin Phenobarbital COVID-19 Source SARS-CoV-2 (PCR) Influenza Type A (PCR) Influenza Type B (PCR) RSV (PCR) 09/23/24 09/23/24 06:00 09:47 WBC 5.02 RBC 4.54 Hgb 14.0 Hct 40.7 MCV 90 MCH 30.8 MCHC 34.4 RDW 12.4 Plt Count 201 MPV 10.0 Immature Gran % 1.2 Neutrophils % 51.3 Band Neutrophils % Lymphocytes % 35.5 Atypical Lymphs % Monocytes % 11.4 Eosinophils % 0.2 Basophils % 0.4 Nucleated RBC % 0.0 Absolute Neutrophils 2.58 Absolute Lymphocytes 1.78 Absolute Monocytes 0.57 Absolute Eosinophils 0.01 Absolute Basophils 0.02 RBC Morphology ABG Sample Site ABG pH ABG pCO2 ABG pO2 ABG HCO3 ABG Total CO2 ABG O2 Saturation ABG Base Excess Oxygen Liter Flow FiO2 Sodium 136 Potassium 3.1 L Chloride 101 Carbon Dioxide 25.5 Anion Gap 9.5 BUN 18 Creatinine 1.0 Est GFR (CKD-EPI 2020) 87.78 Glucose 105 Calcium 8.3 L Magnesium Total Bilirubin 0.8 AST 31 ALT 31 Alkaline Phosphatase 72 Troponin I Total Protein 6.3 L Albumin 2.2 L Phenobarbital Cancelled COVID-19 Source SARS-CoV-2 (PCR) Influenza Type A (PCR) Influenza Type B (PCR) RSV (PCR) PAWSS Have you Been Recently Intoxicated or Drunk Within the Last 30 days?: No Have you Ever Experienced Previous Episodes of Alcohol Withdrawal?: No Have you ever Experienced Withdrawal Seizures?: No Have you ever Experienced Delirium Tremens(DT)s?: No Have you ever undergone Alcohol Rehabilitation Treatment (i.e, inpt ot outpatient treatment programs)?: No Have you ever Experienced Blackouts?: No Have you ever Combined Alcohol with other Downers within the last 90 days?: No Have you ever Combined Alcohol with any other Substance of Abuse during the last 90 days?: No Positive Blood Alcohol level on Presentation? [PCS.BAL]: No Evidence of Increased Autonomic Activity (i.e. HR>120, tremor, sweating, agitation, nausea)?: No Result: 0 Time Spent with Patient Time Spent with Patient: 35-49 minutes Time was spent: preparing to see the patient(eg.review tests), obtaining and/or reviewing separately otained hiistory, ordering medications,tests, procedures, referring, communicating with other health geriatric personal care aide, indepentently interpreting results, counseling the patient and care coordination
--- NOTE | 2024-09-23 16:18 | CHAPLAIN ---
Alonso was resting in bed when I visited. He looked tired and sounded horse. Alonso was admitted through the ED yesterday with flu and pneumonia. He told Ophelia from Care Management that he was working hard to finish his sugaring and should have come to the ED sooner. 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 It was nice to see him. I didn't stay long as she seemed very tired.
[2024-09-23] MEDS: Enoxaparin 40 MG/0.4 ML SYR SC (18:29)
--- NOTE | 2024-09-23 18:45 | W.PC.ACHO ---
Registration Status: Primary Language: Preferred Language: ED Information & Data Chief Complaint GenMedical 09/22/24 15:27 Triage Note Patient ill since sunday09/22/24 15:01 with [employer] cough, SOB (put on O2 approx one hour ago by [facility], 2 lpm satting 90%, increased to 3 in triage, sat 95%. C/O sob, fever/chills, diarrhea , sore throat, intermittent SANDERS. Voice is hoarse. No ear pain.No n/v. Fatigued. Medical / Surgical History (Last Updated 09/16/24 @ 14:03 by Dasha Cyr RN) Family history of malignant neoplasm of digestive organ Snoring Abscess of skin and subcutaneous tissue Nicotine dependence Encounter for vasectomy (05/04/17) Employee exposure to body fluids Nuclear sclerotic cataract of left eye Posterior subcapsular age-related cataract of left eye Tobacco dependence (Last Updated 09/16/24 @ 14:03 by Dasha Cyr RN) Status post cataract extraction and insertion of intraocular lens of right eye (10/21/12) Status post cataract extraction and insertion of intraocular lens of left eye (05/31/18) wisdom teeth (09/19/97) Colonoscopy - IV Sedation (08/02/16) Extraction of cataract Most Recent Vital Signs Temperature 37.4 C 09/23/24 18:01 Temperature Source Temporal Artery Scan 09/23/24 18:01 Pulse 71 09/23/24 18:01 Pulse 64 09/23/24 17:30 Respiratory Rate 19 09/23/24 18:01 Respiratory Effort Short of Breath, Labored 09/23/24 00:45 Respiratory Depth Normal 09/23/24 00:45 Respiratory Pattern Tachypnea 09/23/24 00:45 Blood Pressure 162/81 H 09/23/24 18:01 Blood Pressure Mean 100 09/23/24 16:00 Blood Pressure Position Supine 09/23/24 00:45 Pulse Oximetry 92 09/23/24 18:15 Respiratory End-tidal CO2 27 09/22/24 16:01 Oxygen Delivery Method Nasal Cannula 09/23/24 18:15 Oxygen Flow Rate 5 09/23/24 18:15 Fraction of Inspired Oxygen (FIO2) 35 09/23/24 08:10 Pain Level 0 09/23/24 18:10 Comment MAP 81 Pt was very SOB during transition from ICU to Med-Surg, oxygen increased from 2-6L 09/23/24 18:01 Allergies No Known Allergies Allergy (Unverified 09/22/24 15:11) Precautions Isolation PUI 09/22/24 15:09 Active Medications Generic Name Dose Route Start Last Admin Trade Name Freq PRN Reason Stop Dose Admin Acetaminophen 650 mg 09/23/24 01:02 09/23/24 01:29 Acetaminophen 325 Mg Tab PO 650 mg Q6H PRN PRN Administration Albuterol/Ipratropium 3 ml 09/23/24 02:00 09/23/24 14:19 Albuterol/Ipratropium 3 Ml Upd Vial UPD 3 ml Q6H VEL Administration Azithromycin 250 mg 09/23/24 08:30 09/23/24 09:27 Azithromycin 250 Mg Tab PO 250 mg DAILY VEL Administration Benzonatate 200 mg 09/23/24 09:46 09/23/24 13:31 Benzonatate 200 Mg Cap PO 200 mg TID PRN PRN Administration Cough Enoxaparin Sodium 40 mg 09/22/24 18:00 09/23/24 18:29 Enoxaparin 40 Mg/0.4 Ml Syr SC 40 mg Q24H VEL Administration Ceftriaxone Sodium/Dextrose 1 gm in 50 mls @ 100 mls/hr 09/23/24 14:00 09/23/24 18:29 Rocephin IVPB Infused Q24H VEL Infusion Ibuprofen 200 mg 09/23/24 01:01 09/23/24 01:29 Ibuprofen 200 Mg Tab PO 200 mg Q8H PRN PRN Administration Sodium Chloride 0 ml 09/22/24 15:25 09/23/24 13:31 Normal Saline Flush 10 Ml Syr IVP 20 ml PRN PRN Administration Sodium Chloride 0 ml 09/22/24 20:00 09/23/24 09:28 Normal Saline Flush 10 Ml Syr IVP 20 ml BID VEL Administration IV IV Catheter Type [Right Saline Lock Antecubital] IV Catheter Gauge [Right 18 Antecubital] Diagnostics 09/23/24 09/23/24 09/22/24 Range/Units 09:47 06:00 22:38 WBC 5.02 (4.4-10.8) 10^3/uL RBC 4.54 (4.36-5.78) 10^6/uL Hgb 14.0 (13.5-17.5) g/dL Hct 40.7 (40.0-50.0) % MCV 90 (80-95) fL MCH 30.8 (27.0-33.0) pg MCHC 34.4 (32.0-36.0) % RDW 12.4 (11.8-14.1) % Plt Count 201 (130-400) 10^3/uL MPV 10.0 (8.0-11.0) fL Immature Gran % 1.2 % Neutrophils % 51.3 % Lymphocytes % 35.5 % Monocytes % 11.4 % Eosinophils % 0.2 % Basophils % 0.4 % Nucleated RBC % 0.0 (0.0-0.3) % Absolute Neutrophils 2.58 (1.2-6.7) 10^3/uL Absolute Lymphocytes 1.78 (1.2-3.4) 10^3/uL Absolute Monocytes 0.57 (0.1-0.8) 10^3/uL Absolute Eosinophils 0.01 (0.0-0.7) 10^3/uL Absolute Basophils 0.02 (0.0-0.2) 10^3/uL ABG Sample Site Right Radial ABG pH 7.49 H (7.35-7.45) ABG pCO2 29 L (35-45) mmHg ABG pO2 89 (80-105) mmHg ABG HCO3 22 (22-26) mmol/L ABG Total CO2 19 L (23-27) mmol/L ABG O2 Saturation 98 (95-98) % ABG Base Excess -1 (-2-3) mmol/L Oxygen Liter Flow 50 L FiO2 75 % Sodium 136 (136-145) mmol/L Potassium 3.1 L (3.5-5.1) mmol/L Chloride 101 (98-107) mmol/L Carbon Dioxide 25.5 (21.0-32.0) mmol/L Anion Gap 9.5 (3-11) mmol/L BUN 18 (7-18) mg/dL Creatinine 1.0 (0.70-1.30) mg/dL Est GFR (CKD-EPI 2020) 87.78 (mL/min/1.73m2) Glucose 105 (74-106) mg/dL Calcium 8.3 L (8.5-10.1) mg/dL Total Bilirubin 0.8 (0.2-1.0) mg/dL AST 31 (15-37) U/L ALT 31 (16-63) U/L Alkaline Phosphatase 72 (46-116) U/L Total Protein 6.3 L (6.4-8.2) g/dL Albumin 2.2 L (3.4-5.0) g/dL Phenobarbital Cancelled 09/22/24 Range/Units 19:03 WBC 5.12 (4.4-10.8) 10^3/uL RBC 4.53 (4.36-5.78) 10^6/uL Hgb 14.1 D (13.5-17.5) g/dL Hct 39.3 L (40.0-50.0) % MCV 87 (80-95) fL MCH 31.1 (27.0-33.0) pg MCHC 35.9 (32.0-36.0) % RDW 12.2 (11.8-14.1) % Plt Count 194 (130-400) 10^3/uL MPV 9.3 (8.0-11.0) fL Immature Gran % % Neutrophils % % Lymphocytes % % Monocytes % % Eosinophils % % Basophils % % Nucleated RBC % (0.0-0.3) % Absolute Neutrophils (1.2-6.7) 10^3/uL Absolute Lymphocytes (1.2-3.4) 10^3/uL Absolute Monocytes (0.1-0.8) 10^3/uL Absolute Eosinophils (0.0-0.7) 10^3/uL Absolute Basophils (0.0-0.2) 10^3/uL ABG Sample Site ABG pH (7.35-7.45) ABG pCO2 (35-45) mmHg ABG pO2 (80-105) mmHg ABG HCO3 (22-26) mmol/L ABG Total CO2 (23-27) mmol/L ABG O2 Saturation (95-98) % ABG Base Excess (-2-3) mmol/L Oxygen Liter Flow L FiO2 % Sodium (136-145) mmol/L Potassium (3.5-5.1) mmol/L Chloride (98-107) mmol/L Carbon Dioxide (21.0-32.0) mmol/L Anion Gap (3-11) mmol/L BUN (7-18) mg/dL Creatinine (0.70-1.30) mg/dL Est GFR (CKD-EPI 2020) (mL/min/1.73m2) Glucose (74-106) mg/dL Calcium (8.5-10.1) mg/dL Total Bilirubin (0.2-1.0) mg/dL AST (15-37) U/L ALT (16-63) U/L Alkaline Phosphatase (46-116) U/L Total Protein (6.4-8.2) g/dL Albumin (3.4-5.0) g/dL Phenobarbital Intake and Output - 24 Hour Total 09/22/24 14:43 thru 09/23/24 18:29 Intake Total 2620 Output Total 1350 Balance 1270 Weight 106.821 kg Intake: IV 1470 Oral 1150 Output: Urine 1350 Other: Urine Color Light Bessy Urine Appearance Clear Urine Odor None Stool Size Large Falls Risk Assessment History of Falls No History 09/23/24 00:45 Contributing Factors No Factors 09/22/24 15:09 Ambulatory Aids Independent 09/23/24 00:45 Tubes/Lines W/no contributing factors 09/23/24 00:45 Gait Evaluation No gait disturbance 09/23/24 00:45 Cognition No cognitive impairment 09/22/24 15:09 Fall Total Score 10 09/23/24 00:45 Level of Risk Standard/Low Risk 09/23/24 00:45 Problems (Last Updated 09/16/24 @ 14:03 by Dasha Cyr RN) DVT prophylaxis (Acute) Pneumonia (Acute) Influenza A (Acute) Acute hypoxic respiratory failure (Acute) Notes 09/23/24 06:31 Respiratory by Madison Basilio Called to ER for pt satting low on 12L oxymask. Pt tachypneic, crs bs. Placed on airvo 50L, 70%. Stable w/spo2 @ 94. @2300. RN increased o2 to 75% when pt had a desat. Pt remains tachypneic, abg drawn and cpap initiated for decreased wob and comfort. Pt states that the cpap helps his breathing and can tolerate it well. -0600 Pt remains on cpap, titrated fio2 to 40%. Pt acknowledges understanding that he can trial off cpap this morning and move to airvo. At this time pt wants to remain on cpap and rest. Initialized on 09/23/24 06:31 - END OF NOTE 09/23/24 01:04 Nursing Notes by Chantel Garcia pt admitted to ICU, following continuous decline on high flow oxygen. pt stable on cpap of 8 and 50% fio2 sating 96%. care handed off to Lavonne DIETRICH all questions answered at bedside Initialized on 09/23/24 01:04 - END OF NOTE 09/22/24 19:18 Nursing Notes by Chantel Garcia bedside report received from Vanda Bro RN. Repeat CBC drawn at 1903, O2 saturations began to steadily decline. scheduled nebulizer given. Initialized on 09/22/24 19:18 - END OF NOTE v v v v v v v v v Sending and/or Receiving Nurses: Please use comment section below to note any information pertinent to the patient hand-off not included above. Information / Comments: Pt is on droplet precautions for Flu, 18 G L AC. Report received from: Neeta Spencer [employer]TEGRATED CIRCUIT DESIGN ENGINEER
[2024-09-24] VITALS (13 sets, daily range): BP systolic 137–141; BP diastolic 75–84; PULSE 52–71; RESP 2–20; TEMP 36.1–36.2; O2SAT 91–100
[2024-09-24] MEDS: Albuterol/Ipratropium 3 ML UPD VIAL UPD ×4 (01:53→20:42)
[2024-09-24 06:40] LABS: Anion Gap 13.6 mmol/L (3-11); BUN 21 mg/dL (7-18); CO2 24.4 mmol/L (21.0-32.0); CREATININE 0.9 mg/dL (0.70-1.30); Calcium 8.8 mg/dL (8.5-10.1); Chloride 99 mmol/L (98-107); Estimated GFR 99.62 (mL/min/1.73m2); Glucose 100 mg/dL (74-106); Magnesium 2.2 mg/dL (1.8-2.4); Potassium 3.8 mmol/L (3.5-5.1); Sodium 137 mmol/L (136-145)
--- NOTE | 2024-09-24 09:01 | PDOC.CMPRO ---
Date of service: 09/24/24 Time of Service: 09:01 Care Management Progress Note Progress Note Text Progress Note Text: Alonso is still requiring nc O2, but has made some progress. This morning he was on 3L when CM visited, but presently he is on 1L. Alonso stated that today he is coughing alot, but is getting stuff up. He is aware that this shows improvement. Alonso remains in good spirits, and was quick with a smile. He is hoping for discharge tomorrow. Discharge Potential Discharge Needs: PCP F/U Appt Anticipated Barriers to Discharge: None Identified Patient/Family Education Needs: Review discharge instructions, discuss Ask Me Three Transportation: Private vehicle Plan: Anticipate that Alonso will discharge home, with no new services, once medically stable. He will f/u with his PCP and continue per his plan of care. CM will continue to follow. Social Determinants of Health Screening Social Determinants of health last assessed in clinic: 09/24/24 Will the Patient Participate in the Screening?: Yes Do you worry about having a steady place to live?: no Problems where you live: no known problems In the past 12 months, have you had to go without electric, gas, oil or water in your home?: no 1. Within the past 12 months, we worried whether our food would run out before we got money to buy more.: Don't know/refused 2. Within the past 12 months, the food we bought just didn't last and we didn't have money to get more.: Don't know/refused Has lack of transportation kept you from medical appointments or from doing things needed for daily living?: no Has anyone in your life made you feel unsafe or unsupported?: no How hard is it for you to pay for the very basics like food, housing, medical care, and heating? Would you say it is:: Not hard at all Do you want help finding or keeping work or a job?: I do not need or want help If for any reason you need help with day-to-day activities such as bathing, preparing meals, shopping, managing finances, etc., do you get the help you need?: I don?t need any help How often do you feel lonely or isolated from those around you?: Never Do you speak a language other than Hungarian at home?: No Does the patient want assistance with any of the above?: No
--- NOTE | 2024-09-24 09:11 | PGE_ITS ---
Date of Service Date of service: 09/24/24 Time of Service: 09:11 Assessment and Plan Assessment and plan (1) Influenza A: Status: Acute Assessment and plan: He hasn't been treated because he was outside the typical treatment window, but given severity of illness he may still benefit so started oseltamivir as long as he tolerates it continue supportive measures (2) Pneumonia: Status: Acute Assessment and plan: Superimposed on influenza. Fever, AG, renal, and liver labs all improved. Continue with Rocephin and Zithromax, no change today (3) Acute hypoxic respiratory failure: Status: Acute Assessment and plan: Now stable off BiPAP, has remained on NC all day down to 2L 09/23, though 3 liters at night Wean oxygen as tolerated using acapella, IS. Mobilize today. (4) Tobacco dependence: Assessment and plan: He quit smoking a year ago, encouraged (5) Hypokalemia: Status: Acute Assessment and plan: improved with oral supplumenation (6) DVT prophylaxis: Status: Acute Assessment and plan: enoxaparin Subjective Subjective Patient reports: feels better, tolerating a regular diet and voiding w/o difficulty; denies diarrhea, vomiting or fever Interval history since last seen: Events: transfered to [facility] floor Feels better. Still cough, SOB improving. Eating, but not much appetite. Exam Narrative Exam Narrative: GEN: Alert and oriented, NAD, voice hoarse Cardiovascular: Regular rate and rhythm no murmur rubs gallops Lungs: slight rales left mid/lower lung field, less wheeze, no accessory muscle use, no distress at rest Abdomen: Soft nontender nondistended bowel sounds active Extremities: No cyanosis clubbing or edema Objective Last Vital Signs Temp 36.1 C L 09/24/24 08:40 Pulse 58 L 09/24/24 08:55 Resp 18 09/24/24 08:55 BP 137/75 09/24/24 08:40 Pulse Ox 93 09/24/24 08:55 Laboratory Results - last 24 hr 09/23/24 09/24/24 09:47 06:10 Sodium 137 Potassium 3.8 Chloride 99 Carbon Dioxide 24.4 Anion Gap 13.6 H BUN 21 H Creatinine 0.9 Est GFR (CKD-EPI 2020) 99.62 Glucose 100 Calcium 8.8 Magnesium 2.2 Phenobarbital Cancelled PAWSS Have you Been Recently Intoxicated or Drunk Within the Last 30 days?: No Have you Ever Experienced Previous Episodes of Alcohol Withdrawal?: No Have you ever Experienced Withdrawal Seizures?: No Have you ever Experienced Delirium Tremens(DT)s?: No Have you ever undergone Alcohol Rehabilitation Treatment (i.e, inpt ot outpatient treatment programs)?: No Have you ever Experienced Blackouts?: No Have you ever Combined Alcohol with other Downers within the last 90 days?: No Have you ever Combined Alcohol with any other Substance of Abuse during the last 90 days?: No Positive Blood Alcohol level on Presentation? [PCS.BAL]: No Evidence of Increased Autonomic Activity (i.e. HR>120, tremor, sweating, agitation, nausea)?: No Result: 0 Time Spent with Patient Time Spent with Patient: 25-34 minutes Time was spent: preparing to see the patient(eg.review tests), obtaining and/or reviewing separately otained hiistory, ordering medications,tests, procedures, referring, communicating with other health neonatal intensive care nurse, indepentently interpreting results, counseling the patient and care coordination
[2024-09-24] MEDS: Oseltamivir 75 MG CAP PO ×2 (09:14→20:35)
[2024-09-24] MEDS: Azithromycin 250 MG TAB PO (09:14)
[2024-09-24] MEDS: Potassium Chloride 20 MEQ TABCR 40 MEQ PO (09:14)
[2024-09-24] MEDS: Normal Saline Flush 10 ML SYR IVP ×3 (09:15→20:35)
[2024-09-24] MEDS: predniSONE 20 MG TAB 40 MG PO (10:49)
--- NOTE | 2024-09-24 11:46 | PHA.REVIEW2 ---
Pharmacy Admission Review Admission Clinical Review Admission Pharmacy Review: Hypokalemia (Acute) DVT prophylaxis (Acute) Pneumonia (Acute) Influenza A (Acute) Acute hypoxic respiratory failure (Acute) No Known Allergies Allergy (Unverified 09/22/24 15:11) Resuscitation Status Full Code Height 5 ft 11 in Weight 106.821 kg Pharmacy Admission Review Renal Dosing Renal Dosing: BUN 21 mg/dL (7-18) H 09/24/24 06:10 Creatinine 0.9 mg/dL (0.70-1.30) 09/24/24 06:10 Medications needing adjustments: Reviewed (CrCl 112.6 mL/min, BUN increased from 18) List of meds needing interventions: Current medications are okay Anticoagulation Anticoagulation: Hgb 14.0 g/dL (13.5-17.5) 09/23/24 06:00 Hct 40.7 % (40.0-50.0) 09/23/24 06:00 Plt Count 201 10^3/uL (130-400) 09/23/24 06:00 Creatinine 0.9 mg/dL (0.70-1.30) 09/24/24 06:10 DVT Prophylaxis: Reviewed Medications: Enoxaparin (40mg daily) Relevant Labs Relevant Labs: Sodium 137 mmol/L (136-145) 09/24/24 06:10 Potassium 3.8 mmol/L (3.5-5.1) 09/24/24 06:10 Chloride 99 mmol/L (98-107) 09/24/24 06:10 Magnesium 2.2 mg/dL (1.8-2.4) 09/24/24 06:10 Electrolytes, C-Reactive P, ESR: Reviewed Cardiac Review Cardiac Review: Troponin I Cancelled 09/22/24 18:26 BP, HR, EF%: Reviewed (BP WNL, HR 58, oxygen flow rate = 3) QTc Review QTc: Reviewed (403 from 09/22/24) IV to PO Switch IV Medications: Reviewed (ceftriaxone) Home Meds Home Med List reviewed: Reviewed Current Meds Current Medication Order Review: Reviewed Pharmacy Antibiotic Review Relevant Labs: WBC 5.02 10^3/uL (4.4-10.8) 09/23/24 06:00 Temperature 36.1 C Pharmacy Antibiotic Activity: C/S review and Reviewed, no change Comments: Patient is on ceftriaxone (day 2, day 3 starts this afternoon) and azithromycin (day 3), for pneumonia. No cultures pending at this time. Patient is also on Tamiflu, day 1. Patient is outside typical treatment window but per provider will start due to severity.
[2024-09-24] MEDS: cefTRIAXone 1 GM/50 ML BAG IVPB (14:06)
[2024-09-24] MEDS: Enoxaparin 40 MG/0.4 ML SYR SC (17:37)
[2024-09-25] VITALS (11 sets, daily range): BP systolic 129–138; BP diastolic 79–85; PULSE 54–61; RESP 3–24; TEMP 36.3–36.4; O2SAT 89–95
[2024-09-25] MEDS: Normal Saline Flush 10 ML SYR IVP ×2 (07:35→14:07)
[2024-09-25] MEDS: Azithromycin 250 MG TAB PO (07:35)
[2024-09-25] MEDS: Oseltamivir 75 MG CAP PO (07:35)
[2024-09-25] MEDS: predniSONE 20 MG TAB 40 MG PO (07:48)
[2024-09-25] MEDS: Benzonatate 200 MG CAP PO (07:49)
[2024-09-25] MEDS: Albuterol/Ipratropium 3 ML UPD VIAL UPD ×2 (07:59→15:51)
--- NOTE | 2024-09-25 10:06 | PDOC.CMPRO ---
Date of service: 09/25/24 Time of Service: 10:06 Care Management Progress Note Progress Note Text Progress Note Text: Alonso is still requiring 1L of O2. He failed a trial of RA. Despite this, he remains upbeat, and stated that he is feeling better. His voice has not returned. Alonso was sitting up in the bed when CM met with him. He was watching TV and playing on his phone. He was wishing that he could go outside, looks like it's gonna rain for 3 days when I get out of here. Discharge Potential Discharge Needs: PCP F/U Appt Anticipated Barriers to Discharge: None Identified Patient/Family Education Needs: Review discharge instructions, discuss Ask Me Three Transportation: Private vehicle Plan: Anticipate that Alonso will discharge home, with no new services, once medically stable. He will f/u with his PCP and continue per his plan of care. CM will continue to follow. Social Determinants of Health Screening Social Determinants of health last assessed in clinic: 09/25/24 Will the Patient Participate in the Screening?: Yes Do you worry about having a steady place to live?: no Problems where you live: no known problems In the past 12 months, have you had to go without electric, gas, oil or water in your home?: no 1. Within the past 12 months, we worried whether our food would run out before we got money to buy more.: Never true 2. Within the past 12 months, the food we bought just didn't last and we didn't have money to get more.: Never true Has lack of transportation kept you from medical appointments or from doing things needed for daily living?: no Has anyone in your life made you feel unsafe or unsupported?: no How hard is it for you to pay for the very basics like food, housing, medical care, and heating? Would you say it is:: Not hard at all Do you want help finding or keeping work or a job?: I do not need or want help If for any reason you need help with day-to-day activities such as bathing, preparing meals, shopping, managing finances, etc., do you get the help you need?: I don?t need any help How often do you feel lonely or isolated from those around you?: Never Do you speak a language other than Mongolian at home?: No Does the patient want assistance with any of the above?: No
[2024-09-25] MEDS: cefTRIAXone 1 GM/50 ML BAG IVPB (13:31)
--- NOTE | 2024-09-25 14:34 | CHAPLAIN ---
Alonso was sitting up in bed when I visited. His nurse was in the room with him. Alonso said he hopes to be going home today, and that he's feeling better now. He still sounds horse. 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
--- NOTE | 2024-09-25 16:43 | W.PM.DS.N ---
Date of service: 09/25/24 Time of Service: 16:43 DS: Diagnosis Discharge Diagnosis (1) Influenza A: Status: Acute (2) Pneumonia: Status: Acute (3) Acute hypoxic respiratory failure: Status: Acute (4) Tobacco dependence: (5) Hypokalemia: Status: Acute (6) DVT prophylaxis: Status: Acute Discharge Plan Disposition Patient Disposition: Home Condition: Good Discharge Details Reason For Visit: hypoxia Admit Date/Time: 09/22/24 18:26 Admit Provider: Ivan Roberts Attending Provider: Ivan Roberts Primary Care Provider: Reny Washburn Hospital Course Hospital Course: 59 yo M, former smoker, who presented with a 6 day history of weakness and shortness of breath and was sent from primary acute care with hypoxia. In the ED evaluation was significant for influenza A positive and CXR showing pneumonia. He was admitted and treated with ceftriaxone and azithromycin. He was initially admitted to the ICU as he required BiPAP for respiratory distress and hypoxic respiratory failure. He was weaned to nasal canula but went back on BiPAP overnight the second night as well. He was initially not treated with oseltamivir due to the late presentation, but this was started along with prednisone due to the severity of his illness with persistent hypoxia. On 09/25 he was weaned completely off oxygen and maintained his oxygen with ambulation as well. he was discharged to finish a 5 day course of oseltamivir and predisone as well as cefpodoxime and azithromycin for superimposed bacteria pneunonia. He did respond to nebulized bronchodilators and was given an albuterol inhaler for home use. He did not get the flu shot this year but plans to in future years starting this fall. His potassium was low and was supplemented orally. Outpatient PFTs should be considered given his smoking history and wheezing. PCP follow up: Clinical follow up 1-2 weeks Evaluation for chronic lung disease, consider PFTs Home Meds and New Rx's Prescriptions: New azithromycin 250 mg Tablet 250 mg PO DAILY Qty: 1 0RF prednisone 20 mg Tablet 40 mg PO DAILY 3 Days Qty: 6 0RF albuterol sulfate [Ventolin HFA] 90 mcg/actuation Hfa Aerosol Inhaler 2 puff inhalation Q4H PRN PRNQty: 8.5 1RF cefpodoxime 200 mg tablet 200 mg PO BID Qty: 2 0RF Rx Instructions: must administer with a meal/food, start 4/25 oseltamivir 75 mg capsule 75 mg PO BID 3 Days Qty: 6 0RF Continued acetaminophen [Tylenol] 325 mg Capsule 650 mg PO Q6H PRN Held ibuprofen 200 mg Tablet 200 mg PO Q8H PRN Hold Instructions: Resume on 09/29/24. don't take while taking prednisone Discharge Instructions Instructions: Community-Acquired Pneumonia, Adult (DC), Flu in adults - Discharge instructions Additional Instructions: You have two antibiotics for pneumonia (just one more day - Monday 09/25) You also have 3 more days of the flu medication and prednisone Use the albuterol with a spacer as needed Talk to your primary care about lung testing when you get better. You may have some emphysema (AKA COPD/Chronic Obstructive Lung Disease) and it would be good to know about this. Stand Alone Forms: Nursing Discharge Form Referrals: Reny Washburn [Primary Care Provider] - 09/26/24 2:30 pm (please arrive at 2:15 pm ) Activity:: Activity as Tolerated Equipment/Supplies:: No Equipment Needed Diet:: As Tolerated Discharge Orders Discharge Orders: Discharge Order (Routine); Ordered 09/25/24 Ordered By: Curly Delgado DS: Summary Time Spent with Patient providing and/or coordinating discharge services: Greater than 30 minutes Status at Discharge Functional status at discharge: independent ambulation Overall status at discharge: patient is progressing back to baseline Mental Status: mental status grossly normal Speech and Movement: speech and movement normal Mood: congruent mood Affect: normal affect Quality:SDOH Health Related Social Needs: No Data to Display Exam Narrative Exam Narrative: GEN: Alert and oriented, NAD, voice hoarse Cardiovascular: Regular rate and rhythm no murmur rubs gallops Lungs: lungs now without rales, mild expiratory wheeze more inferiorly, no accessory muscle use, no distress at rest Abdomen: Soft nontender nondistended bowel sounds active Extremities: No cyanosis clubbing or edema Psych Mental Status: mental status grossly normal Speech and Movement: speech and movement normal Mood: congruent mood Affect: normal affect DS: Data Vitals/I&O Vitals and I&O: Vital Signs Temperature 36.3 C L 09/25/24 15:44 Temperature Source Temporal Artery Scan 09/25/24 15:44 Pulse 61 09/25/24 16:01 Pulse Rhythm Regular 09/23/24 18:15 Pulse 64 09/23/24 17:30 Respiratory Rate 16 09/25/24 15:51 Respiratory Effort Normal, Non-Labored, Short of Breath 09/23/24 18:15 Respiratory Depth Normal 09/23/24 18:15 Respiratory Pattern Normal 09/23/24 18:15 Blood Pressure 129/85 09/25/24 15:44 Blood Pressure Mean 100 09/23/24 16:00 Blood Pressure Position Supine 09/23/24 00:45 Pulse Oximetry 93 09/25/24 15:51 Respiratory End-tidal CO2 27 09/22/24 16:01 Oxygen Delivery Method Room Air 09/25/24 15:51 Oxygen Flow Rate 0 09/25/24 15:51 Fraction of Inspired Oxygen (FIO2) 25 09/24/24 08:32 Pain Level 0 09/25/24 15:44 Comment RN notified 09/25/24 15:44 Intake & Output 09/24/24 09/25/24 09/25/24 23:59 11:59 23:59 Intake Total 370 / 370 940 / 1230 290 / 1230 Output Total 1175 / 2400 1050 / 1225 175 / 1225 Balance -805 / -2030 -110 / 5 115 / 5 Weight 107 kg Intake: IV 50 / 50 50 / 50 Oral 320 / 320 940 / 1180 240 / 1180 Output: Urine 1175 / 2400 1050 / 1225 175 / 1225 Other: Urine Color Light Jovita Light Jovita Yellow Urine Appearance Clear Clear Clear Urine Odor Strong Strong Comment Patient's urine is clear vand light jovita in color, with a strong odor. Patient used urinal ind. in bed. PFSH All Active Problems (Updated 09/25/24 @ 16:43 by Curly Delgado) Hypokalemia (Acute) DVT prophylaxis (Acute) Pneumonia (Acute) Influenza A (Acute) Acute hypoxic respiratory failure (Acute) Obesity (Chronic) Urethral stricture (Acute) Incomplete emptying of bladder (Chronic) Medical History (Updated 09/25/24 @ 16:43 by Curly Delgado) Family history of malignant neoplasm of digestive organ Snoring Abscess of skin and subcutaneous tissue Nicotine dependence Employee exposure to body fluids Nuclear sclerotic cataract of left eye Posterior subcapsular age-related cataract of left eye Encounter for vasectomy (05/04/17) Tobacco dependence Surgical History (Updated 09/16/24 @ 14:03 by Dasha Cyr RN) Status post cataract extraction and insertion of intraocular lens of left eye (05/31/18) Status post cataract extraction and insertion of intraocular lens of right eye (10/21/12) wisdom teeth (09/19/97) Colonoscopy - IV Sedation (08/02/16) Extraction of cataract Family History Father Colon cancer Mother Heart disease Brother No problems noted. Brother No problems noted. Sister No problems noted. Sister No problems noted. Sister No problems noted. Social History Smoking/Tobacco Use Status: Former Tobacco Use Smoking risk assessment performed?: Yes Alcohol Intake: current Drug use: Rarely Substance use type: marijuana Housing: house Do you feel safe at home: Yes Do you feel safe in your relationship?: Yes Time Spent with Patient Time Spent with Patient: <45 minutes Time was spent: preparing to see the patient(eg.review tests), obtaining and/or reviewing separately otained hiistory, ordering medications,tests, procedures, referring, communicating with other health animal care assistant, indepentently interpreting results, counseling the patient and care coordination
== END 2024-09-25 18:13 | disposition home or self-care (01) | DRG 193 ==
LOC: ER 23:57 → ICU 09-23 00:53 → MS 09-23 18:17
PROVIDERS: Admitting Provider Hospitalist; Emergency Provider Emergency Medicine; PCP Nurse Practitioner Family; Responsible Provider Family Medicine; Visit Provider Hospitalist
DX: J10.1 Influenza due to other identified influenza virus with other respiratory manifestations (principal); J96.01 Acute respiratory failure with hypoxia; J18.9 Pneumonia, unspecified organism; E87.6 Hypokalemia; E66.9 Obesity, unspecified; R33.9 Retention of urine, unspecified; Z80.0 Family history of malignant neoplasm of digestive organs; Z87.891 Personal history of nicotine dependence; Z68.32 Body mass index [BMI] 32.0-32.9, adult
CPT/HCPCS: 00123; 36415; 71275; 80048; 80053; 82805; 85027; 87637; 93005; 93308; 94640; 94761; 96365; 96367; 96372; 99291; J1650; 71046; 80184; 83735; 84484; 85025; 93010; 94660; 94667; 94668; 94760; 99222; 99231; 99232; 99239; J0131; J0456; J0696; J3490; J7512; J7620

== ENCOUNTER 2024-09-26 16:06 | Outpatient (REF) | payer OTHER, SELFPAY ==
[2024-09-26 21:45] LABS: ALT 75 U/L (16-63); AST 42 U/L (15-37); Albumin 2.9 g/dL (3.4-5.0); Alkaline Phosphatase 93 U/L (46-116); Anion Gap 11.1 mmol/L (3-11); BUN 21 mg/dL (7-18); Bilirubin, Total 0.6 mg/dL (0.2-1.0); CO2 23.9 mmol/L (21.0-32.0); Chloride 103 mmol/L (98-107); Estimated GFR 87.78 (mL/min/1.73m2); Glucose 140 mg/dL (74-106); Potassium 5.1 mmol/L (3.5-5.1); Sodium 138 mmol/L (136-145); Total Protein 6.6 g/dL (6.4-8.2)
== END 2024-09-26 16:07 | disposition home or self-care (01) ==
LOC: NCHCN 16:06
PROVIDERS: PCP Nurse Practitioner Family; Visit Provider Nurse Practitioner Family
DX: R06.03 Acute respiratory distress (principal)
CPT/HCPCS: 80053

== ENCOUNTER 2024-10-20 02:50 | Outpatient (CLI) | payer OTHER, SELFPAY ==
--- NOTE | 2024-10-20 08:35 | DI.RAD_ITS ---
Exam(s) XR CHEST 2V PA LATERAL EXAM: XR CHEST 2V PA LATERAL CLINICAL HISTORY: ACUTE RESPIRATORY DISTRESS,R06.03,F/U PNEUMONIA TECHNIQUE: 2D digital imaging was performed. Two views. COMPARISON: CR XR CHEST 2V PA LATERAL from 09/22/[address] CHEST PE CTA from 09/22/2024 FINDINGS: HEART: Normal size. Aorta: Not dilated. PULMONARY VASCULATURE: Normal. MEDIASTINUM: Unremarkable. LUNGS: The right lung appears clear. There are increased densities at the left lung base which could represent overlapping structures versus residual infiltrate. PLEURAL SPACE: No pleural effusion or pneumothorax. BONE:Unremarkable for age. SOFT TISSUES: Unremarkable. IMPRESSION: Increased left lower lobe densities may represent overlapping structures versus residual infiltrate. DATA REPOSITORY: RADIATION DOSE DELIVERED:
== END 2024-10-20 03:10 ==
LOC: DI 02:50
PROVIDERS: PCP Nurse Practitioner Family; Visit Provider Nurse Practitioner Family
DX: R06.03 Acute respiratory distress (principal); R91.8 Other nonspecific abnormal finding of lung field
CPT/HCPCS: 71046

== ENCOUNTER 2024-12-18 13:21 | Outpatient (REF) | payer OTHER, SELFPAY ==
[2024-12-18 16:53] LABS: ALT 37 U/L (16-63); AST 15 U/L (15-37); Albumin 4.0 g/dL (3.4-5.0); Alkaline Phosphatase 76 U/L (46-116); Anion Gap 11.2 mmol/L (3-11); BUN 22 mg/dL (7-18); Bilirubin, Total 0.8 mg/dL (0.2-1.0); CO2 22.8 mmol/L (21.0-32.0); Calcium 9.1 mg/dL (8.5-10.1); Calculated LDL 70 mg/dL (<100); Chloride 106 mmol/L (98-107); Cholesterol 133 mg/dL (<200); Estimated GFR 103.22 (mL/min/1.73m2); Glucose 112 mg/dL (74-106); HDL Cholesterol 50 mg/dL (>or=40); Potassium 4.2 mmol/L (3.5-5.1); Sodium 140 mmol/L (136-145); Total Protein 7.0 g/dL (6.4-8.2); Triglyceride 66 mg/dL (<150)
[2024-12-19 11:39] LABS: Hepatitis A Antibody IgM Negative (Negative); Hepatitis C Ab w Rflx HCV PCR Negative (Negative)
== END 2024-12-18 13:22 | disposition home or self-care (01) ==
LOC: NCHCN 13:21
PROVIDERS: PCP Nurse Practitioner Family; Visit Provider Nurse Practitioner Family
DX: R79.89 Other specified abnormal findings of blood chemistry (principal); Z13.220 Encounter for screening for lipoid disorders
CPT/HCPCS: 80053; 80061; 86704; 86709; 86803; 87340

== ENCOUNTER 2025-02-13 06:50 | Day surgery (SDC) | payer OTHER, SELFPAY ==
--- NOTE | 2025-02-12 16:31 | W.PM.DSUDISC ---
Date of service: 02/13/25 Discharge Plan Disposition Patient Disposition: Home Condition: Good Discharge Details Reason For Visit: Screening colonoscopy Attending Provider: Raj Mendoza Primary Care Provider: Kristina Arrieta Home Meds and New Rx's Prescriptions: Continued acetaminophen [Tylenol] 325 mg Capsule 650 mg PO Q6H PRN ibuprofen 200 mg Tablet 200 mg PO Q8H PRN albuterol sulfate [Ventolin HFA] 90 mcg/actuation Hfa Aerosol Inhaler 2 puff inhalation Q4H PRN PRNQty: 8.5 1RF Discontinued bisacodyl [Dulcolax (bisacodyl)] 5 mg tablet,delayed release (DR/EC) 5 mg PO ONCE Qty: 4 0RF Rx Instructions: Take per colonoscopy instructions provided by ordering providers office polyethylene glycol 3350 17 gram/dose powder 17 g PO ONCE Qty: 238 0RF Rx Instructions: Take per colonoscopy instructions provided by ordering providers office Discharge Instructions Instructions: Colon polyps Additional Instructions: 1. If tolerated, consume a soft, low fiber diet for 1-2 days. 2[address] Do not drive, drink alcohol, operate machinery, make critical decisions, or do activities that require coordination or balance for 24 hours. 3. Because air was put into your colon during the procedure, expelling air from your rectum (passing gas or farting) is normal. 4. You may not have a bowel movement for 1-3 days because of the colonoscopy prep. This is normal. 5. Go directly to the emergency room if you notice any of the following: Develop chills (warm to touch), or if you have a thermometer and your temperature is above 101 Difficulty breathing or difficultly swallowing Persistent vomiting Severe abdominal pain, other than gas cramps Severe chest pain Black, tarry stools Any bleeding ? exceeding one tablespoon 6. Call your physician if the site where your intravenous was started becomes red, swollen, painful, and warm to touch. 7. Your physician has reviewed your pre-procedure medications. Please continue to take those medications as previously ordered. You will be given specific information/education regarding any changes to your medications before leaving. Stand Alone Forms: Anesthesia Discharge Stevan Dudley (DSU) Activity:: Activity as Tolerated Diet:: As Tolerated Discharge Orders Discharge Orders: Discharge Order (Routine); Ordered 02/12/25 Ordered By: Raj Mendoza DS: Diagnosis Discharge Diagnosis (1) Encounter for screening colonoscopy: Status: Acute Asessment and Plan: Follow-up on polypectomy results
--- NOTE | 2025-02-12 16:32 | COLE_ITS ---
Date of service: 02/13/25 Time of Service: 08:47 Colonoscopy Report Date of procedure: 02/13/25 Pre-op diagnosis general: Screening colonoscopy Post-op diagnosis procedure note: other (Colon polyp) Procedure: Colonoscopy with polypectomy Surgeon: Raj Mendoza Anesthesia Type: General:No Airway Estimated blood loss (mL): 5 Pathology: other (0.25 cm flat polyp at 100 cm) Complications: None Disposition: same day Indications: Alonso is a 60-year-old male who needs a screening Prep: Miralax/Dulcolax Procedure Start Time: 08:28 Procedure End Time: 08:39 Retraction Time: 7 Findings: 0.25 cm flat polyp at 100 cm Procedure Description: With Alonso awake, and in left lateral decubitus position, I began by performing an external anorectal exam.? Perineum and skin were normal, as was the anal verge.? There was no evidence of external hemorrhoids.? Next, I performed a digital rectal exam.? I did not appreciate any abnormal findings.? Next, I advanced a colonoscope into the rectal vault.? I performed retroflexion.? This was normal.? Using insufflation, I then advanced the colonoscope beyond the rectal folds and into the sigmoid colon before advancing towards the cecum.? The quality of the prep was excellent.? The scope was noted to be in the cecum by identification of the ileocecal valve and appendiceal orifice.? I then began withdrawing the colonoscope using repeated irrigation as necessary for full evaluation of the colonic mucosa. ?Around 100 cm from the anal verge I identified a 0.25 cm polyp. ?It appeared flat in character. ?I was able to remove this with a cold forcep polypectomy. ?I examined the site, and there was minimal bleeding. ?Once this was completed, I continued to withdraw the scope and examine the remainder of the colonic mucosa. Once the scope was withdrawn to the level of the rectum, great care was taken to examine portions of the rectal folds.? Finally, the scope was withdrawn and the patient was brought to the same-day surgery recovery unit as the anesthetic wore off. ?The findings and instructions were shared with the patient prior to discharge. [place] Bowel Prep [place] Bowel Prep Right Colon: 3 Left Colon: 3 Transverse Colon: 3 Total Score: 9
[2025-02-13 07:00] VITALS: BP 150/87; PULSE 56; RESP 18; TEMP 36.4; O2SAT 97
[2025-02-13] MEDS: Lactated Ringers 1,000 ML 80 ML IV (07:34)
--- NOTE | 2025-02-13 08:20 | W.ANESPRE ---
General Info Date of Service Date Performed: 02/13/25 Height: 5 ft 10 in Weight: 106.5 kg Body Mass Index (BMI): 33.7 Surgical Procedure: Operation Date: 02/13/25 08:35 Proposed Procedure Side Surgeon han Mendoza MD Meds Allergies and Home Medications Allergies Allergy/AdvReac Type Severity Reaction Status Date / Time No Known Allergies Allergy Unverified 02/13/25 07:21 Home Medication ?Medication ?Instructions ?Recorded acetaminophen 325 mg capsule 650 mg PO Q6H PRN 04/08/18 (Tylenol) ibuprofen 200 mg tablet 200 mg PO Q8H PRN 04/08/18 albuterol sulfate 90 mcg/actuation 2 puff inhalation Q4H PRN PRN #8.5 09/25/24 aerosol inhaler (Ventolin HFA) grams Current Visit Medications: Current Medications Generic Name Dose Route Start Last Admin Trade Name Freq PRN Reason Stop Dose Admin Ringer's Solution 1,000 mls @ 80 mls/hr 02/13/25 06:00 02/13/25 07:34 IV 02/13/25 23:59 80 mls/hr INFUSION VEL Administration IV Miscellaneous Supplies 1 each 02/13/25 06:00 Iv Access IV 02/13/25 23:59 DIRECTED VEL Sodium Chloride 0 ml 02/13/25 06:00 Normal Saline Flush 10 Ml Syr IV 02/13/25 23:59 PRN PRN Sodium Chloride 0 ml 02/13/25 06:00 Normal Saline 10 Ml Vial IJ 02/13/25 23:59 DIRECTED PRN Sterile Water 0 ml 02/13/25 06:00 Water,Injection,Sterile 10 Ml Vial IJ 02/13/25 23:59 DIRECTED PRN PFSH Active Problems Active Problems: Problem Status Onset Code Encounter for screening colonoscopy Acute Z12.11 Influenza A Acute J10.1 Obesity Chronic E66.9 Urethral stricture Acute Incomplete emptying of bladder Chronic R33.9 Medical History Medical History Pneumonia Family history of malignant neoplasm of digestive organ Snoring Abscess of skin and subcutaneous tissue Nicotine dependence Encounter for vasectomy (05/04/17) Employee exposure to body fluids Nuclear sclerotic cataract of left eye Posterior subcapsular age-related cataract of left eye Tobacco dependence Surgical History Surgical History Status post cataract extraction and insertion of intraocular lens of right eye (10/21/12) Status post cataract extraction and insertion of intraocular lens of left eye (05/31/18) wisdom teeth (09/19/97) Colonoscopy - IV Sedation (08/02/16) Extraction of cataract Tobacco Smoking/Tobacco Use Status: Former Tobacco Use Alcohol Alcohol Intake: current Alcohol intake frequency: 0-2 drinks per day Alcohol type: hard liquor Substance Use Substance use: Rarely Substance use type: marijuana Vital Signs and Lab Results Vital Signs Most Recent Vital Signs in EMR: Most Recent Vital Signs Temp Pulse Resp BP Pulse Ox 36.4 C L 56 L 18 150/87 H 97 02/13/25 07:00 02/13/25 07:00 02/13/25 07:00 02/13/25 07:00 02/13/25 07:00 Imaging and Studies Imaging and Studies Study information below may be from another EMR and interpreted by another provider. Please see original notes in EMR for more complete details. EKG Summary: 09/22/24: Exam: Resting ECG Reason for Exam: SOB Patient Location: E HR:63 bpm ECG Measurements Heart Rate 63 AXIS VT 158 P 75 QRSd 99 QRS 38 QT 393 T55 QTc 403 Conclusion Sinus rhythm, rate 63 No interval abnormalities No STEMI No priors available for comparison I have reviewed and I agree with the emergency room physician's ECG interpretation. Stress Test Summary: 08/26/19: Stress ECG Conclusion 1. Patient exercised for 11 minutes. (9 METS). Rate-pressure product was 29,000. 2. Patient had no symptoms suggestive of ischemia. 3. There was no evidence of ischemia on the ECG portion of this exam. 4. The Brink Score (7) estimates an annual cardiovascular mortality of 0% and a five year survival of 95%. Using the Brink Score there is a low probability of any angiographic coronary disease. Echocardiogram Summary: 08/19/19: Conclusion Left Ventricle : The left ventricle is normal size. The left ventricular systolic function is normal. The left ventricular ejection fraction is within the normal range. There is normal left ventricular wall thickness. There is normal LV segmental wall motion. The left ventricular diastolic function is normal. LVEF is 65-70%. Right Ventricle : The right ventricle is normal size. The right ventricular systolic function is normal. Atria : The left atrium size is normal. The right atrium size is normal. Valves: There are no hemodynamically significant valvular lesions. Great Vessels : IVC is normal in size and collapses >50% with inspiration. Estimated RVSP is 21-24 mmHg. Please see remainder of report for additional details. There is no prior echocardiogram available for comparison. Anesthesia Assessment and Plan Anesthesia History Personal History: No History of Anesthesia Complications Family History: No Family History of Anesthesia Complications Exercise Tolerance Exercise Tolerance: Metabolic Equivalents>4 Pertinent Negatives Pertinent Negatives: No Major Cardiovascular Symptoms or Complaints and No Major Pulmonary Symptoms or Complaints Cardiac & Pulmonary Exam Cardiac Exam: Normal S1/S2 Heart Sounds Pulmonary Exam: Clear Bilateral Breath Sounds Implantable Cardiac Device Does patient have a Pacemaker or an ICD?: No Airway Exam Known Difficult Airway: No Mallampati Class: 2 Mouth Opening: Normal (> 3cm) Thyromental Distance: Greater than 3 cm Facial Hair: Full [place] Neck Range of Motion: Full ROM Neck Circumference: Normal Teeth Condition: Normal Dentition (Some missing teeth) ASA Classification ASA Score: ASA 2 Emergency Case?: No NPO Status NPO Status: NPO Clears >2 hours, Solids >8 hours Anesthesia Plan Resuscitation Status: Full Code Anesthesia Technique: General Anesthesia Airway Planned: Natural Airway Monitors Used: Standard Monitors
[2025-02-13 08:22] VITALS: BMI 33.7
--- NOTE | 2025-02-13 08:35 | BOWEL_PTH ---
PATIENT: Alonso Cameron LOC: [facility] U#:[id number] AGE/SX: 60/M ROOM: RE02/13/[address]: Raj Mendoza MD : [id number] BED: DIS: 02/13/2025 SPEC #: [id number] RECD: 02/13/25 12:30 STATUS: ROSITA RE #: [id number] ALEX: 02/13/25 08:[address]: Raj Mendoza DEPT: Surgical Specimen RECD BY: Jannie Vegas ENTERED: 02/13/25 12:31 SP TYPE: Bowel OTHR DR: Kristina Arrieta Tissues: 1 - BIOPSY BOWEL Procedures: GROSS AND MICRO LEVEL 4 Comments: [id number]
[2025-02-13 08:46] VITALS: BP 152/90; PULSE 49; RESP 16; TEMP 36.4; O2SAT 100
== END 2025-02-13 09:02 | disposition home or self-care (01) ==
LOC: SUR 06:51
PROVIDERS: PCP Nurse Practitioner Family; Visit Provider Surgery
PROC: 0DJD8ZZ Inspection of Lower Intestinal Tract, Via Natural or Artificial Opening Endoscopic (ICD-10-PCS; CPT 45378; principal; 2025-02-13 08:30)
DX: Z12.11 Encounter for screening for malignant neoplasm of colon (principal); D12.3 Benign neoplasm of transverse colon
CPT/HCPCS: 45380; 88305